=== PATIENT | male | born 1950 | race Caucasian/White ===

== ENCOUNTER → 2019-04-12 13:52 | Outpatient (CLI) | payer MEDICARE, SELFPAY ==
--- NOTE | ~2019-04-12 | CT_ITS ---
EXAMINATION: CT abdomen w con DATE: 04/12/2019 14:28 INDICATION: Left upper quadrant pain for 3 months TECHNIQUE: Computed tomography (CT) of the abdomen and pelvis was performed with 100 cc Omnipaque 350 intravenous contrast. The dose-length product was 695.68 mGy-cm. Automated exposure control and iter ative reconstruction technique were employed. COMPARISON: CT dated 07/20/2017 FINDINGS: Lung bases unremarkable. No significant pleural or pericardial effusion. Heart size is norm al. Fatty infiltration of the liver. Calcified granulomas in the spleen. The pancreas is unremarkable . There are nonobstructing bilateral renal stones. There is a subcentimeter hypodensity of the left k idney, most likely benign. There are small subcentimeter adrenal masses bilaterally, most likely more gn. Gallbladder is present. There is diffuse thickening of the stomach, suspicious for gastritis. No evidence for perforation. No obstruction. There is atherosclerosis of the aorta without aneurysm. Col onic diverticulosis without evidence for diverticulitis. No free air or free fluid. IMPRESSION: 1. Diffuse abnormal thickening of the gastric wall, suspicious for gastritis. Differential diagnosis would include lymphoma, although less favored. 2: Bilateral nonobstructing nephrolithiasis. 3: Hepatic steatosis. Reviewed, dictated and finalized at location A. ET MOLDER IMPRESSION: 1. Diffuse abnormal thickening of the gastric wall, suspicious for gastritis. D ifferential diagnosis would include lymphoma, although less favored. 2: Bilateral nonobstructing nephrolithiasis. 3: Hepatic steatosis.
[2019-04-12 14:21] LABS: Blood Urea Nitrogen 16 mg/dL (8-26); Estimated Glomerular Filt Rate > 60
== END ==
PROVIDERS: PCP Family Medicine; Visit Provider Physician Assistant
DX: R10.12 Left upper quadrant pain (principal); N20.0 Calculus of kidney; K76.0 Fatty (change of) liver, not elsewhere classified
CPT/HCPCS: 74160; Q9967

== ENCOUNTER 2019-05-16 00:22 | Day surgery (SDC) | payer MEDICARE, SELFPAY ==
[2019-05-11 13:00] VITALS: BMI 33.5
[2019-05-16 08:01] VITALS: BP 135/62; PULSE 66; RESP 18; TEMP 36.1; O2SAT 99; BMI 34.1
--- NOTE | 2019-05-16 08:07 | PM.HPGS ---
History of Present Illness History of Present Illness Consent: Risks, benefits, and alternatives have been discussed and questions answered. Patient agrees to proceed with procedure. Chief complaint: Dysphagia, Neoplasm Screening Narrative: Tolu Franklin is a 68 year old W male referred for EGD and colonoscopy. Chronic GERD and intermittent dysphagia. Hx of colonic polyps and last colonoscopy 10 yrs ago. No LGI tract symptoms PMFSH Past Medical History Medical History LUQ abdominal pain Surgical History Surgical History (Updated 05/16/19 @ 08:10 by Camron Sawyer MD) History of appendectomy S/P bilateral inguinal herniorrhaphy Family History Family History Mother Patient's mother is , Onset Age: 62 Family history of malignant neoplasm of ovary Hypertension Father Patient's father is in good health Social History Social History Smoking status: Heavy tobacco smoker Alcohol intake: current Meds Home Medications and Allergies Home Medications Medication Instructions Recorded Confirmed Type fluoxetine 40 mg capsule 40 mg PO QAM #90 cap 03/11/19 05/11/19 Rx glipizide 10 mg tablet 10 mg PO BID #180 tablet 04/04/19 05/11/19 Rx metformin 500 mg PO BID 05/11/19 05/11/19 History etodolac 05/16/19 History Allergies Allergy/AdvReac Type Severity Reaction Status Date / Time No Known Allergies Allergy Unknown Verified 05/16/19 08:00 Vital Signs Vital Signs - 24 hr 05/16/19 08:01 Temperature 36.1 C L Pulse Rate 66 Respiratory Rate 18 Blood Pressure 135/62 Pulse Oximetry 99 Exam Const: Orientation/consciousness: patient oriented x3 Resp: Auscultation: clear to auscultation bilaterally Cardio: Rate: regular rate Rhythm: regular rhythm Heart sounds: no murmurs GI: GI Palp: Yes Soft to palpation, No Tenderness to palpation present (GI), Yes No hepatosplenomegaly present and No Palpable mass present Auscultation: normal bowel sounds Neuro: General: patient oriented x3 and no focal motor deficits Extrem: General: no pedal edema Assessment and Plan Additional Plan EGD and colonscopy
[2019-05-16 08:21] LABS: Glucose Point of Care 169 (65-105)
[2019-05-16] MEDS: LACTATED RINGERS 1,000 ML 150 ML IV CONT (08:21)
--- NOTE | 2019-05-16 08:55 | WPDANESEPPF ---
Anes - Initial Pre Proc Eval Procedure: Operation Date: 05/16/19 09:00 Proposed Procedures p Esophagogastroduodenoscopy&Screen Colon - Camron Sawyer MD Date/Time: 05/16/19 08:55 Surgeon: Camron Sawyer MD Pre Op Diagnosis: Dysphagia, Neoplasm Screening Patient Data Age: 68 Gender: M Height: 5 ft 8 in Weight: 101.9 kg Last Vital Signs Temp 96.9 F L 05/16/19 08:01 Pulse 66 05/16/19 08:01 Resp 18 05/16/19 08:01 BP 135/62 05/16/19 08:01 Pulse Ox 99 05/16/19 08:01 Allergies Allergy/AdvReac Type Severity Reaction Status Date / Time No Known Allergies Allergy Unknown Verified 05/16/19 08:00 Home Medications Medication Instructions Recorded Confirmed Type fluoxetine 40 mg capsule 40 mg PO QAM #90 cap 03/11/19 05/11/19 Rx glipizide 10 mg tablet 10 mg PO BID #180 tablet 04/04/19 05/11/19 Rx metformin 500 mg PO BID 05/11/19 05/11/19 History amlodipine-olmesartan 1 tablet PO DAILY 05/16/19 05/16/19 History etodolac 05/16/19 History etodolac 400 mg PO BID 05/16/19 05/16/19 History linagliptin [Tradjenta] 5 mg PO QAM 05/16/19 05/16/19 History nebivolol [Bystolic] 20 mg PO DAILY 05/16/19 05/16/19 History pantoprazole 40 mg PO QAM 05/16/19 05/16/19 History rosuvastatin 10 mg PO DAILY 05/16/19 05/16/19 History Laboratory Tests 05/16/19 08:15 POC Capillary Glucose 169 mg/dl H mg/dl (65-105) Patient hx anesthesia problems: none Family hx anesthesia problems: none PMFSH Past Medical History Medical History (Updated 05/16/19 @ 08:55 by Nnamdi Osuna MD) Chronic GERD Essential hypertension LUQ abdominal pain YASMANY (obstructive sleep apnea) Pure hypercholesterolemia Type 2 diabetes mellitus without complication, without long-term current use of insulin Surgical History Surgical History (Updated 05/16/19 @ 08:10 by Camron Sawyer MD) History of appendectomy S/P bilateral inguinal herniorrhaphy Family History Family History Mother Patient's mother is , Onset Age: 62 Family history of malignant neoplasm of ovary Hypertension Father Patient's father is in good health Social History Social History Smoking status: Heavy tobacco smoker Alcohol intake: current Anes - Eval Final PreProcedure Day of Procedure 05/16/19 08:55 Patient weight: obese Heart: regular rate and rhythm Lungs: clear to auscultation Airway: Mallampati scale class III Neurological: alert and oriented Last oral intake: >/= 8 hours ASA classification: III Emergent: no Anesthetic plan: proceed Anesthesia type and monitoring: general GIVS and standard monitoring Informed Consent: The patient's anesthetic plan and its attendant risks and benefits were discussed with the patient/family/POA. Questions were solicited and answers provided to the satisfaction of the patient/family/POA.
[2019-05-16] MEDS: BENZOCAINE (*SP) 60 ML SPRAY CAN (HURRICAINE) 1 SPRAY MUCOUS MEM (09:08)
[2019-05-16 09:42] VITALS: BP 81/47; PULSE 59; RESP 14; O2SAT 98
[2019-05-16 09:52] VITALS: BP 97/51; PULSE 58; RESP 14; O2SAT 98
[2019-05-16 10:02] VITALS: BP 95/56; PULSE 60; RESP 14; O2SAT 98
[2019-05-16 10:12] VITALS: BP 110/59; PULSE 57; RESP 14; O2SAT 98
== END 2019-05-16 10:41 | disposition home or self-care (01) ==
PROVIDERS: PCP Family Medicine; Visit Provider Internal Medicine Gastroenterology
PROC: 0DJ08ZZ Inspection of Upper Intestinal Tract, Via Natural or Artificial Opening Endoscopic (ICD-10-PCS; CPT 43235; principal; 2019-05-16 09:00)
DX: Z12.11 Encounter for screening for malignant neoplasm of colon (principal); K64.8 Other hemorrhoids; K57.30 Diverticulosis of large intestine without perforation or abscess without bleeding; K31.89 Other diseases of stomach and duodenum; K29.50 Unspecified chronic gastritis without bleeding; R13.10 Dysphagia, unspecified; K21.9 Gastro-esophageal reflux disease without esophagitis; I10 Essential (primary) hypertension; E78.00 Pure hypercholesterolemia, unspecified; E11.9 Type 2 diabetes mellitus without complications; G47.33 Obstructive sleep apnea (adult) (pediatric); Z79.84 Long term (current) use of oral hypoglycemic drugs; E66.9 Obesity, unspecified; Z68.34 Body mass index [BMI] 34.0-34.9, adult
CPT/HCPCS: 43239; G0121; 88305; J2704; J7120

== ENCOUNTER 2019-07-28 10:25 | Outpatient (CLI) | payer MEDICARE, SELFPAY ==
--- NOTE | ~2019-07-28 | XR_ITS ---
EXAMINATION: XR shoulder LT min 2V DATE: 07/28/2019 10:39 INDICATION: Left shoulder pain. TECHNIQUE: 4 views of left shoulder were obtained. COMPARISON: None. FINDINGS: Bone alignment is normal. No fracture. There is mild osteoarthritis of glenohumeral joint a nd moderate osteoarthritis of acromioclavicular joint. IMPRESSION: 1. Polyarticular osteoarthritis. Reviewed, dictated and finalized at location A.
== END 2019-07-28 10:26 | disposition home or self-care (01) ==
PROVIDERS: PCP Family Medicine; Visit Provider Physician Assistant
DX: M19.012 Primary osteoarthritis, left shoulder (principal)
CPT/HCPCS: 73030

== ENCOUNTER 2019-10-16 15:04 | Inpatient (IN) | payer MEDICARE, SELFPAY ==
--- NOTE | ~2019-10-16 | CT_ITS ---
EXAMINATION: CT chest wo con DATE: 10/16/2019 16:44 INDICATION: Bilateral airspace disease with possible mass seen on recent chest x-ray TECHNIQUE: Computed tomography (CT) of the chest was performed without intravenous contrast. The dose -length product was 716.05 mGy-cm. Automated exposure control and iterative reconstruction technique were employed. COMPARISON: Chest x-ray dated 10/16/2019 FINDINGS: There is patchy bilateral airspace consolidation, consistent with pneumonia. Small pleural effusions. Consolidation at the left upper lobe accounts for masslike density seen on chest x-ray. Ri ght paratracheal lymphadenopathy measures 12 mm, image 49, likely reactive. There is left gynecomasti a. There is bilateral adrenal thickening, possibly adrenal hyperplasia. Calcified granulomas in the s pleen. IMPRESSION: 1. Extensive bilateral patchy airspace consolidation, compatible with pneumonia. No discrete mass saida ntified. 2: Small pleural effusions. Reviewed, dictated and finalized at location A. IMPRESSION: 1. Extensive bilateral patchy airspace consolidation, compatible with pneumonia . No discrete mass identified. 2: Small pleural effusions.
--- NOTE | ~2019-10-16 | XR_ITS ---
XR chest 1V portable 10/16/2019 15:42 Indication: Shortness of breath Procedure: AP portable chest Comparison: 11/17/2017 Findings: Cardiomegaly with diffuse bilateral airspace disease, compatible with edema versus pneumoni a. There is a masslike density in the left apex. Cannot exclude parenchymal mass. There is a left sherin ulder arthroplasty. No significant pleural effusion or pneumothorax. Impression: 1: Bilateral airspace disease which may represent edema or pneumonia. 2: Masslike density left apex. Recommend correlation with CT chest to exclude parenchymal mass. Reviewed, dictated and finalized at location A. Impression: 1: Bilateral airspace disease which may represent edema or pneumonia. 2: Masslike density left apex. Recommend correlation with CT chest to exclude parenchymal mass.
[2019-10-16 15:09] VITALS: BP 147/65; PULSE 95; RESP 22; TEMP 35.9; O2SAT 91
[2019-10-16 15:21] VITALS: BP 152/73; PULSE 90; PULSE 91; RESP 24; O2SAT 79
--- NOTE | 2019-10-16 15:22 | ED.SOB ---
HPI - SOB/Dyspnea General Chief Complaint: Shortness of Breath/Dyspnea Stated Complaint: sob Time Seen by Provider: 10/16/19 15:22 History of Present Illness HPI Narrative: He had surgery to the left shoulder 4 days ago. He had been doing well until today. Today he was feeling very SOB. His bought a pulse oximeter, which read in the 70. He does report some chest pressure as well. No fever, chills, cough. No h/o CHF, COPD. Related Data Home Medications Medication Instructions Recorded Confirmed rosuvastatin 10 mg PO DAILY 05/16/19 10/07/19 acetaminophen 10/16/19 aspirin PO 10/16/19 docusate sodium [DOK] PO 10/16/19 oxycodone-acetaminophen 1 tablet PO Q4H PRN 10/16/19 Allergies Allergy/AdvReac Type Severity Reaction Status Date / Time No Known Allergies Allergy Unknown Verified 10/16/19 15:25 Review of Systems Review of Systems: All systems reviewed & are unremarkable except as noted in HPI and below Constitutional: Constitutional: Denies chills and Denies fever(s) ENT: Denies sore throat Cardiovascular: Cardiovascular: Reports chest pain Respiratory: Respiratory: Reports dyspnea Gastrointestinal: Gastrointestinal: Denies abdominal pain, Denies nausea and Denies vomiting Musculoskeletal: Musculoskeletal: Denies back pain Neurologic: Denies numbness and Denies weakness [facility] Past Medical History Medical History Chronic GERD Diverticulosis Erectile dysfunction Essential hypertension HLD (hyperlipidemia) Internal hemorrhoid Left shoulder pain LUQ abdominal pain YASMANY (obstructive sleep apnea) Pure hypercholesterolemia Status post fall Type 2 diabetes mellitus with hyperglycemia Type 2 diabetes mellitus without complication, without long-term current use of insulin Surgical History Surgical History History of appendectomy S/P bilateral inguinal herniorrhaphy Family History Family History Mother Patient's mother is , Onset Age: 62 Family history of malignant neoplasm of ovary Hypertension Father Patient's father is in good health Social History Social History Smoking packs per day: 1 Smoking cigarettes per day: 20.0 Years smoked: 45 Smoking pack-years: 45.00 Smoking status: Heavy tobacco smoker Tobacco type: cigarettes Second hand tobacco smoke exposure: No Alcohol intake: current Drinks per week: 6 Substance use: never Substance use type: does not use Gender identity (if verbalized by the patient): Male Exam Const: General: no acute distress and alert Nutritional Appearance: obese Orientation/consciousness: patient oriented x3 HENMT: Head: normal to inspection Neck: Neck: normal visual inspection Chest: Other: Bruising to the left chest Resp: Effort & Inspection: normal respiratory effort and labored Auscultation: clear to auscultation bilaterally, crackles and diminished lung sounds Cardio: Jugular venous distension: no JVD Rate: regular rate Rhythm: regular rhythm Heart sounds: no murmurs GI: Inspection: non-distended GI Palp: Yes Soft to palpation and No Tenderness to palpation present (GI) Skin: General skin exam: normal color Neuro: General: patient oriented x3 and moves all extremities Speech: normal speech Extrem: General: edema (trace) Psych: Appearance: well kempt Affect: normal affect Course Vital Signs Vital signs: Vital Signs Temperature 35.9 C L 10/16/19 15:09 Pulse Rate 95 10/16/19 15:09 Respiratory Rate 22 H 10/16/19 15:09 Blood Pressure 147/65 H 10/16/19 15:09 Pulse Oximetry 91 10/16/19 15:09 Temperature 35.9 C L 10/16/19 15:09 Pulse Rate 84 10/16/19 15:56 Respiratory Rate 24 H 10/16/19 15:56 Blood Pressure 143/77 H 10/16/19 15:56 Pulse Oximetry
--- NOTE | 2019-10-16 15:28 | PC.NURSE ---
BERENICE Frias at bedside for assessment.
[2019-10-16 15:51] LABS: Basophils Percent Auto 0.3 % (0.2-1.2); Eosinophils Percent Auto 0.3 % (0-4.4); Hematocrit 26.5 % (42.0-52.0); Hemoglobin 8.4 g/dL (14.0-18.0); Immature Granulocyte Absolute 0.05 K/mm3 (0.00-0.031); Immature Granulocyte Percent A 0.7 % (0-0.5); Lymphocytes Percent Auto 10.5 % (18.3-44.2); Mean Corpuscular HGB Conc 31.7 g/dl (32-36); Mean Corpuscular Hemoglobin 28.4 pg (26-34); Mean Corpuscular Volume 89.5 fl (80-100); Mean Platelet Volume 9.9 fl (7.4-10.4); Monocytes Absolute Auto 0.7 K/mm3 (0.1-0.6); Monocytes Percent Auto 9.7 % (2.6-8.5); Neutrophils Percent Auto 78.5 % (45.5-73.1); Platelet Count Result 174 k/mm3 (150-375); Red Blood Count 2.96 M/mm3 (4.6-6.20); Red Cell Distribution Width 15.4 % (11.5-14.5); White Blood Count 7.6 K/mm3 (4.5-10.0)
[2019-10-16 15:56] VITALS: BP 143/77; PULSE 84; RESP 24; O2SAT 92
[2019-10-16 16:00] LABS: INR 1.1; Prothrombin Time 14.2 Seconds (11.1-14.7)
[2019-10-16 16:01] LABS: Partial Thromboplastin Time 34.7 SECONDS (22.3-36.8)
[2019-10-16 16:03] LABS: Anion Gap 10.9 mmol/L (7-16); Blood Urea Nitrogen 11 mg/dL (9-20); Calcium 8.3 mg/dL (8.4-10.2); Carbon Dioxide 26 mmol/L (22-30); Chloride 104 mmol/L (98-107); Estimated Glomerular Filt Rate > 60; Glucose 129 mg/dL (75-110); Potassium 3.9 mmol/L (3.4-5.0); Sodium 137 mmol/L (137-145)
[2019-10-16 16:14] LABS: Troponin I < 0.012 ng/mL (0.000-0.034)
--- NOTE | 2019-10-16 16:18 | ECG_ITS ---
Measurements Intervals [place] Rate: 86 P: 33 CO: 164 QRS: 31 QRSD: 86 T: 28 QT: 363 QTc: 435 Interpretive Statements SINUS RHYTHM BASELINE WANDER- V1 NORMAL ECG Electronically Signed On 10-16-2019 16:21:03 CDT by Dave Franco D.O.
[2019-10-16] MEDS: FUROSEMIDE INJ 40 MG/4 ML VIAL IV PUSH (16:20)
[2019-10-16 16:33] LABS: NT Pro B Type Natriuretic Pept 948 PG/ML (5-100)
[2019-10-16 19:25] VITALS: BP 130/74; PULSE 81; RESP 16; O2SAT 98
[2019-10-16 19:45] VITALS: BP 140/69; PULSE 83; RESP 22; TEMP 36.8; O2SAT 93; BMI 34.7
--- NOTE | 2019-10-16 20:10 | ADMGEN ---
This patient, Tolu Franklin, was admitted to [facility] Surg Room 328-01. Patient/family oriented to hospital policies and general routines including ID bracelet, bed and alarms, visiting hours, pain management, procedures, bathroom and other care routines, personal items, smoking policy, room service/diet, and visiting hours. Valuables list has been completed. Information on how to activate the Rapid Response Team has been discussed. Patient/Family are encouraged to report perceived risks to care and to ask questions if they do not understand what they are told or what they should do.
--- NOTE | 2019-10-16 23:21 | PM.IMHP ---
H&P: HPI History of Present Illness Date/Time: 10/16/19 23:21 Chief complaint: Acute respiratory failure w hypoxia/pneumonia/pulm Narrative: Tolu Franklin is a 69 year old male Who recently had left shoulder surgery at [facility]. The patient stated that he did have an incentive spirometer that he has been using it. The patient also told me that he was checked for covid 19 prior to this surgery. The patient has been feeling short of breath. He tells me that he still continues to smoke cigarettes. His but a pulse ox and it was reading in the 70 percentile. He does not have any chest pain no fever no chills no cough . The patient has no history of congestive heart failure COPD. He does not wear oxygen at home. The patient was brought and was going to be treated for community-acquired pneumonia checked for covid 19. Patient did not have any leukocytosis. His H&H is 8.426.5 which he typically has anemia but his last hemoglobin noted here was from 2 years ago. And that was between 10 and 11. The patient also has sleep apnea and stated that he could not sleep without his machine. He was told that he could not bring his machine in here. I offered to give him a machine that he could use here. The patient stated he is very comfortable in the bed we tried to place him in the recliner and he tried that for about 30 minutes and was very uncomfortable. The patient stated that he is very uncomfortable and does not want to stay here. I a explained that we could try to get him a specialty bed tomorrow. But the patient again stated he made up his mind and did not want to stay here. The patient stated he has any problems that he would like to go back to [facility]. The patient tells me that he did not want to stay here to begin with and that he wanted to go back to [facility]. The patient had a Moore catheter that was placed ear and also he had oxygen placed at 2 L per nasal cannula. The patient took off his oxygen and his Moore catheter was removed. I advised the patient that he was diagnosed with pneumonia and that he is being checked for COVID and that we could not discharge him at this point that he would be signing out AMA. Patient is telling me that he would like to sign out AMA. He stated that he called his and that he is going to leave. Since the patient recently had cyst surgery he did have a chest CT a which was read as extensive bilateral patchy airspace consolidation, comparable with pneumonia no discrete mass. Small pleural effusions. The patient was given IV Lasix for possible pulmonary edema and he was started on Rocephin And azithromycin. The patient is fully aware that he will not get any further treatment if he signs out AMA. I have spent at least 45 minutes with the patient. I was not able to convince him to stay. left shoulder incision well approximated without any drainage. Date of service 10/16/2019 Review of Systems Review of Systems: All systems reviewed & are unremarkable except as noted in HPI and below Constitutional: Constitutional: Reports as per HPI and Reports no additional constitutional complaints Eyes: Eyes: Reports as per HPI and Reports no additional eye complaints ENT: Reports system reviewed and no additional complaints, except as documented and Reports Normal hearing present Cardiovascular: Cardiovascular: Reports no additional cardiovascular complaints Respiratory: Respiratory: Reports no additional respiratory complaints and Reports no additional respiratory complaints Gastrointestinal: Gastrointestinal: Reports as per HPI and Reports no additional gastrointestinal complaints Musculoskeletal: Musculoskeletal: Reports no additional musculoskeletal complaints Integumentary/Breasts: Skin/Breast: Reports system reviewed and no additional complaints, except as docu and Reports as per HPI Neurologic: Reports system reviewed and no additional complaints, except as
--- NOTE | 2019-10-16 23:38 | PC.NURSE ---
Patient stated he was going to leave and go home. Rufina Vasques informed and she went into room to talk to patient. Patient insisted he was going home AMA papers signed. Oscar, EMILEE, and Telemetry DC'd. arrived to take patient home. Patient taken down to lobby by charge nurse Payal with all belongings.
--- NOTE | 2019-10-16 23:48 | PC.NURSE ---
Patient notified of risks of leaving AMA. Rufina Vasques notified. Patient signed AMA form. Patient left with all belongings.
[2019-10-17 12:00] LABS: SARS-CoV-2 RNA PCR Negative
== END 2019-10-16 23:56 | disposition left against medical advice (07) | DRG 189 ==
LOC: ANHED 17:36 → ANH3MEDSUR 17:38
PROVIDERS: Admitting Provider Internal Medicine; Emergency Provider Emergency Medicine; PCP Family Medicine; Visit Provider Internal Medicine
DX: J96.01 Acute respiratory failure with hypoxia (principal); J18.9 Pneumonia, unspecified organism; Z20.828 Contact with and (suspected) exposure to other viral communicable diseases; F17.210 Nicotine dependence, cigarettes, uncomplicated; E78.5 Hyperlipidemia, unspecified; E11.9 Type 2 diabetes mellitus without complications; F32.9 Major depressive disorder, single episode, unspecified; I10 Essential (primary) hypertension; G47.33 Obstructive sleep apnea (adult) (pediatric); K21.9 Gastro-esophageal reflux disease without esophagitis; Z96.612 Presence of left artificial shoulder joint; Z98.890 Other specified postprocedural states; Z79.82 Long term (current) use of aspirin; Z79.84 Long term (current) use of oral hypoglycemic drugs
CPT/HCPCS: 36415; 71045; 71250; 80048; 83880; 84484; 85025; 85610; 85730; 87635; 93005; 96374; 99291; C9803; J0456; J0696; J1940; U0003

== ENCOUNTER 2019-10-17 01:48 | Inpatient (IN) | payer MEDICARE, SELFPAY ==
[2019-10-17] VITALS (20 sets, daily range): BP systolic 112–187; BP diastolic 57–101; PULSE 73–104; RESP 16–29; TEMP 36.4–37.1; O2SAT 84–97; BMI 34.4
--- NOTE | ~2019-10-17 | US_ITS ---
EXAMINATION: US venous doppler [facility] DATE: 10/20/2019 07:04 INDICATION: Hypoxia TECHNIQUE: Ervin scale images without and with compression and Doppler images of the bilateral lower e xtremity veins were obtained. COMPARISON: None FINDINGS: The right common femoral vein, profunda femoral vein, femoral vein, popliteal vein, peroneal trunk, p osterior tibial veins, and greater saphenous vein are patent. The left common femoral vein, profunda femoral vein, femoral vein, popliteal vein, peroneal trunk, po sterior tibial veins, and greater saphenous vein are patent. IMPRESSION: 1. Patent bilateral lower extremity veins. No evidence of deep venous thrombosis. Reviewed, dictated and finalized at location A. IMPRESSION: 1. Patent bilateral lower extremity veins. No evidence of deep venous thrombosi s.
--- NOTE | ~2019-10-17 | XR_ITS ---
EXAMINATION: XR chest 2V DATE: 10/19/2019 08:25 INDICATION: Shortness of breath, pneumonia TECHNIQUE: Frontal and lateral views of the chest are obtained COMPARISON: 10/16/2019 FINDINGS: Diffuse airspace opacities persist with slight worsening in the left midlung zone. Small pl eural effusions are stable. No pneumothorax is identified. The cardiomediastinal silhouette is normal . There are changes of left total shoulder arthroplasty IMPRESSION: 1. Diffuse lung disease with interval worsening in the left midlung zone, consistent with pneumonia. Reviewed, dictated and finalized at location A. IMPRESSION: 1. Diffuse lung disease with interval worsening in the left midlung zone, consi stent with pneumonia.
--- NOTE | ~2019-10-17 | US_ITS ---
EXAMINATION: US renal BI DATE: 10/20/2019 07:05 INDICATION: Hematuria TECHNIQUE: Multiple grayscale and Doppler ultrasound images of the kidneys were obtained. COMPARISON: CT, 07/20/2017 FINDINGS: The right kidney measures 12 x 5.6 x 6.3 cm. The left kidney measures 13.5 x 5.2 x 6.9 cm. The kidneys demonstrate normal parenchymal echogenicity. There is no hydronephrosis. The bladder demo nstrates circumferential wall thickening and posterior diverticula. IMPRESSION: 1. Normal kidneys without hydronephrosis. 2. Circumferential bladder wall thickening which may be due to cystitis or chronic outlet obstruction . Reviewed, dictated and finalized at location A. IMPRESSION: 1. Normal kidneys without hydronephrosis. 2. Circumferential bladder wall thickening which may be due to cystitis or account services manager noman outlet obstruction.
--- NOTE | 2019-10-17 01:57 | ECG_ITS ---
Measurements Intervals [place] Rate: 96 P: 42 SC: 155 QRS: 32 QRSD: 86 T: 23 QT: 338 QTc: 427 Interpretive Statements SINUS RHYTHM BORDERLINE ST ABNORMALITY- ANTERIOR LEADS BASELINE ARTIFACT- II, III, AVR, AVF BORDERLINE ECG Electronically Signed On 10-17-2019 17:12:29 CDT by Dave Franco D.O.
--- NOTE | 2019-10-17 02:04 | ED.SOB ---
HPI - SOB/Dyspnea General Chief Complaint: Shortness of Breath/Dyspnea Stated Complaint: SOB Time Seen by Provider: 10/17/19 01:54 Source: RN notes reviewed and old records reviewed History of Present Illness HPI Narrative: Patient presents emergency department from home for shortness of breath. Patient was seen and evaluated in the [place] ED earlier today and admitted to the hospital with bilateral pneumonia with concerns of COVID. He had been treated with Rocephin and Zithromax at that time following a CTA of his chest. Patient got upstairs and had left AGAINST MEDICAL ADVICE. He had returned home and was hypoxic and felt worse and came back for further evaluation. He currently denies any chest pain. Reports no shortness of breath. Patient did just have left shoulder surgery on 10/13/2019 at [facility]. Denies any other symptoms at this time Related Data Home Medications Medication Instructions Recorded Confirmed rosuvastatin 10 mg PO DAILY 05/16/19 10/16/19 acetaminophen 650 mg PO Q6H PRN 10/16/19 10/16/19 aspirin 325 mg PO DAILY 10/16/19 10/16/19 docusate sodium [DOK] 100 mg PO DAILY 10/16/19 10/16/19 oxycodone-acetaminophen 1 tablet PO Q4H PRN 10/16/19 10/16/19 Allergies Allergy/AdvReac Type Severity Reaction Status Date / Time No Known Allergies Allergy Unknown Verified 10/16/19 15:25 Review of Systems Review of Systems: Narrative: Gen.: Denies fevers or chills ENT: Denies congestion Respiratory: See HPI CV: Denies chest pain or palpitations GI: Denies abdominal pain nausea, emesis or diarrhea Musculoskeletal: Denies back pain or muscle pain Neuro: Denies numbness, tingling, weakness or focal weakness Skin: Denies rash Except as documented, all other systems reviewed and negative [facility] Past Medical History Medical History Aftercare following left shoulder joint replacement surgery Chronic GERD Diverticulosis Erectile dysfunction Essential hypertension HLD (hyperlipidemia) Internal hemorrhoid Left shoulder pain LUQ abdominal pain YASMANY (obstructive sleep apnea) Pure hypercholesterolemia Status post fall Type 2 diabetes mellitus with hyperglycemia Type 2 diabetes mellitus without complication, without long-term current use of insulin Surgical History Surgical History (Updated 10/16/19 @ 23:30 by Rufina Vasques NP) H/O shoulder surgery this past week at [facility]. History of appendectomy S/P bilateral inguinal herniorrhaphy Social History Social History Social History: The patient tells me that he lives with his . And that she is a durable power criminal defense attorney for healthcare. The patient stated that he does continue to smoke but he plans on quitting today. The patient is a full code. Smoking packs per day: 1 Smoking cigarettes per day: 20.0 Years smoked: 50 Smoking pack-years: 50.00 Smoking status: Current every day smoker Tobacco type: cigarettes Second hand tobacco smoke exposure: No Alcohol intake: current Drinks per week: 7 Substance use: never Substance use type: does not use Gender identity (if verbalized by the patient): Male Spiritual care concerns: No Exam Narrative: Exam Narrative: APPEARANCE: No acute distress, nontoxic, resting in bed EYES: EOMI HEENT: Normocephalic, atraumatic, OMM RESPIRATORY: No respiratory distress coarse breath sounds bilateral lung lopez CARDIOVASCULAR: Regular rate and rhythm without murmurs rubs or gallops. ABDOMINAL: Soft, nontender, nondistended, no rebound or guarding MUSCULOSKELETAl: Moves all extremities. No clubbing, cyanosis or edema. NEURO: Awake and alert. Following commands, speech normal, no focal deficits SKIN:: Warm, dry. No rashes lesions or abrasions PSYCHIATRIC: Normal affect/mood, Course Course Emergency Course: Reviewed old records. The patient received antibiotics on pr
[2019-10-17 02:19] LABS: Basophils Percent Auto 0.4 % (0.2-1.2); Eosinophils Percent Auto 0.1 % (0-4.4); Hematocrit 28.6 % (42.0-52.0); Hemoglobin 9.2 g/dL (14.0-18.0); Immature Granulocyte Absolute 0.09 K/mm3 (0.00-0.031); Immature Granulocyte Percent A 1.1 % (0-0.5); Lymphocytes Absolute Auto 0.74 K/mm3 (0.9-3.2); Lymphocytes Percent Auto 9.1 % (18.3-44.2); Mean Corpuscular HGB Conc 32.2 g/dl (32-36); Mean Corpuscular Hemoglobin 28.2 pg (26-34); Mean Corpuscular Volume 87.7 fl (80-100); Mean Platelet Volume 10.7 fl (7.4-10.4); Monocytes Absolute Auto 0.7 K/mm3 (0.1-0.6); Neutrophils Absolute Auto 6.5 K/mm3 (1.3-6.7); Neutrophils Percent Auto 80.3 % (45.5-73.1); Platelet Count Result 214 k/mm3 (150-375); Red Blood Count 3.26 M/mm3 (4.6-6.20); Red Cell Distribution Width 15.2 % (11.5-14.5); White Blood Count 8.1 K/mm3 (4.5-10.0)
[2019-10-17 02:32] LABS: Alanine Aminotransferase 21 U/L (4-50); Albumin Level 4.1 g/dL (3.5-5.1); Alkaline Phosphatase 91 U/L (38-126); Anion Gap 13.5 mmol/L (7-16); Aspartate Amino Transferase 30 U/L (17-59); Bilirubin,Total 1.7 mg/dL (0.2-1.3); Blood Urea Nitrogen 10 mg/dL (9-20); Carbon Dioxide 24 mmol/L (22-30); Chloride 102 mmol/L (98-107); Estimated Glomerular Filt Rate > 60; Glucose 155 mg/dL (75-110); Potassium 3.5 mmol/L (3.4-5.0); Sodium 136 mmol/L (137-145)
--- NOTE | 2019-10-17 04:40 | ADMGEN ---
This patient, Tolu Franklin, was admitted to [facility] Surg Room 327-01. Patient/family oriented to hospital policies and general routines including ID bracelet, bed and alarms, visiting hours, pain management, procedures, bathroom and other care routines, personal items, smoking policy, room service/diet, and visiting hours. Valuables list has been completed. Information on how to activate the Rapid Response Team has been discussed. Patient/Family are encouraged to report perceived risks to care and to ask questions if they do not understand what they are told or what they should do.
[2019-10-17] MEDS: POTASSIUM CHLORIDE 20 MEQ TABLET 40 MEQ PO (09:45)
[2019-10-17] MEDS: ENOXAPARIN 40 MG/0.4 ML SYRINGE SUB-Q (09:45)
[2019-10-17] MEDS: DOCUSATE SODIUM 100 MG CAPSULE PO (09:46)
[2019-10-17] MEDS: NEBIVOLOL HCL 5 MG TABLET 20 MG PO (09:46)
[2019-10-17] MEDS: FLUoxetine HCL 20 MG CAPSULE 40 MG PO (09:48)
[2019-10-17] MEDS: OLMESARTAN MEDOXOMIL 20 MG TABLET 40 MG PO (09:48)
[2019-10-17] MEDS: PANTOPRAZOLE 40 MG TABLET PO (09:49)
[2019-10-17] MEDS: amLODIPine BESYLATE 5 MG TABLET PO (09:49)
[2019-10-17] MEDS: ASPIRIN 325 MG ENTERIC TABLET PO (09:49)
[2019-10-17] MEDS: ROSUVASTATIN 10 MG TABLET PO (09:49)
--- NOTE | 2019-10-17 12:47 | PC.NURSE ---
Notified Dr. Padilla that patient COVID is negative
[2019-10-17] MEDS: ACETAMINOPHEN 325 MG TABLET 650 MG PO ×2 (13:45→22:03)
--- NOTE | 2019-10-17 17:48 | PM.IMHP ---
H&P: HPI History of Present Illness Date/Time: 10/17/19 17:48 Chief complaint: Acute respiratory failure with hypoxia, Narrative: date of visit 10/16 1130 Tolu Franklin is a 69 year old male with hypertension type 2 diabetes status post left shoulder surgery for osteoarthritis and rotator cuff tear 10/13 who presented to the emergency room yesterday with 8 to with increasing shortness of breath. Found to have diffuse infiltrates and hypoxic with negative CTA for pulmonary emboli. Initially was admitted and left the hospital when he was feeling better and returned main became more hypoxic and short of breath at home. Presently on 4 L nasal cannula is comfortable has had minimal cough no fever chills or chest pain COVID tested prior to his elective shoulder surgery and negative Review of Systems Review of Systems: Narrative: constitutional states she has had no fevers chills stated and has lost about 10 lb over the last 6 months with purposeful dieting Eye no double vision scotoma mouth no pharyngitis laryngitis pulmonary as per present illness CV no history of murmurs no chest pain or palpitation GI no melena hematochezia diarrhea as had some burning with urination and had Moore yesterday muscle skeletal left shoulder pain no other joint pains integument no skin breakdown down or rashes Heme history of anemia and negative colonoscope some 2 years ago [facility] Past Medical History Medical History Aftercare following left shoulder joint replacement surgery Chronic GERD Diverticulosis Erectile dysfunction Essential hypertension HLD (hyperlipidemia) Internal hemorrhoid Left shoulder pain LUQ abdominal pain YASMANY (obstructive sleep apnea) Pure hypercholesterolemia Status post fall Type 2 diabetes mellitus with hyperglycemia Type 2 diabetes mellitus without complication, without long-term current use of insulin Surgical History Surgical History (Updated 10/16/19 @ 23:30 by Rufina Vasques NP) H/O shoulder surgery this past week at [facility]. History of appendectomy S/P bilateral inguinal herniorrhaphy Social History Social History Social History: The patient tells me that he lives with his . 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 The patient stated that he does continue to smoke but he plans on quitting today. The patient is a full code. Smoking packs per day: 1 Smoking cigarettes per day: 20.0 Years smoked: 40 Smoking pack-years: 40.00 Smoking status: Current every day smoker Tobacco type: cigarettes Second hand tobacco smoke exposure: No Alcohol intake: current Drinks per week: 7 Substance use: never Substance use type: does not use Gender identity (if verbalized by the patient): Male Sexual Orientation (if Verbalized by the Patient): Straight or Heterosexual Spiritual care concerns: No Comments alcohol consumption 6-8 beers 1-2 times per week but not on a daily basis Meds Home Medications and Allergies Home Medications Medication Instructions Recorded Confirmed Type fluoxetine 40 mg capsule 40 mg PO QAM #90 cap 03/11/19 10/17/19 Rx rosuvastatin 10 mg PO DAILY 05/16/19 10/17/19 History etodolac 400 mg tablet 400 mg PO BID #180 tablet 05/18/19 10/17/19 Rx linagliptin 5 mg tablet 5 mg PO QAM #90 tablet 07/12/19 10/17/19 Rx pantoprazole 40 mg tablet,delayed 40 mg PO QAM #90 tablet 07/12/19 10/17/19 Rx release sildenafil 100 mg tablet 100 mg PO DAILY PRN #6 tablet 08/10/19 10/17/19 Rx metformin 500 mg tablet,extended 2,000 mg PO DAILY #360 tablet 08/12/19 10/17/19 Rx release 24hr nebivolol 20 mg tablet 20 mg PO DAILY #90 tablet 09/19/19 10/17/19 Rx amlodipine 5 mg-olmesartan 40 mg 1 tablet PO DAILY #30 tablet 10/07/19 10/17/19 Rx tablet glipizide 5 mg tablet 5 mg PO BID #60 tablet 10/07/19 10/17/19 Rx ferrous s
[2019-10-17 18:26] LABS: Glucose Point of Care 164 (65-105)
[2019-10-17 18:37] LABS: Add Urine Microscopic? YES; Appearance Urine Clear (Clear); Bilirubin Urine 1+ (Negative); Blood Urine 1+ (Negative); Color Urine Yellow (Yellow); Glucose Urine UA 2+ mg/dL (Negative); Ketones Urine 1+ mg/dL (Negative); Leukocyte Esterase Ur Negative LEU/UL (NEGATIVE); Mucus Urine Few /lpf; Nitrate Urine Negative (Negative); Protein Urine 3+ mg/dL (Negative); RBC Urine 51-75 /hpf (0-2); Specific Grav Ur 1.024 (1.001-1.035); Squamous Epithelial Cell Urine Rare /hpf (Few); WBC Urine 0-3 /hpf (0-3)
[2019-10-17] MEDS: IPRATROPIUM BR 0.02% INH SOLN 0.5 MG/2.5 ML VIAL INHALATION (20:46)
[2019-10-17] MEDS: ALBUTEROL SULFATE NEB 2.5 MG/0.5 ML INH 5 MG INHALATION (20:47)
[2019-10-18] VITALS (18 sets, daily range): BP systolic 135–157; BP diastolic 56–80; PULSE 66–88; RESP 18–20; TEMP 36.5–36.9; O2SAT 89–96
--- NOTE | 2019-10-18 | ECHO_ITS ---
Patient Info Name: Tolu Franklin Age: 69 years : 1950 Gender: Male Ht: 68 in Wt: 226 lbs BSA: 2.26 m2 HR: 75 bpm BP: 146 / 56 mmHg Heart Rhythm: Sinus Rhythm Technical Quality: Fair Exam Date: 10/18/2019 10:16 AM Exam Location: [facility] Patient Status: Inpatient Admit Date: 10/18/2019 Staff Ordering Physician: Matthew Padilla MD General Office Associate: Ian Ho RDCS Attending Provider: Guera Mckeon PA-C Referring Physician: Valerie ODONNELL; Exam Type: CA echo doppler color flow Study Info Indications J96.01 - Acute respiratory failure with hypoxia Complete two-dimensional, color flow and Doppler transthoracic echocardiogram is performed. Strain analysis performed. History/Risk Factors Hypoxia w/ elevated BNP; CHF, HTN, DM2, CAP. Summary 1. Left ventricular chamber dimension is normal. 2. Left ventricular systolic function is normal, estimated at 60-65%. 3. There is mildly increased left ventricular wall thickness. 4. The left ventricular diastolic function is abnormal. 5. E/e' 20 is elevated. 6. Global longitudinal strain is abnormal at -15.3%. 7. Left atrial chamber dimension is mildly enlarged. 8. There is mild aortic valve sclerosis. 9. The mitral valve has mildly calcified annulus. 10. No pulmonary hypertension, estimated pulmonary arterial systolic pressure is 38 mmHg. Left Ventricle E/e' 20 is elevated. Global longitudinal strain is abnormal at -15.3%. Left ventricular chamber dimension is normal. Left ventricular systolic function is normal, estimated at 60-65%. There is mildly increased left ventricular wall thickness. The left ventricular diastolic function is abnormal. Right Ventricle Right ventricular chamber dimension is normal. Right ventricular systolic function is normal. Left Atria Left atrial chamber dimension is mildly enlarged. Right Atria Right atrial chamber dimension is normal. Aortic Valve The aortic valve is trileaflet. There is mild aortic valve sclerosis. There is no aortic valve stenosis. There is no aortic valve regurgitation. Pulmonic Valve There is no pulmonic regurgitation. Mitral Valve The mitral valve has mildly calcified annulus. There is no mitral valve stenosis. There is no mitral valve regurgitation. Tricuspid Valve There is no tricuspid valve regurgitation. No pulmonary hypertension, estimated pulmonary arterial systolic pressure is 38 mmHg. Pericardium/Pleural There is no pericardial effusion. Inferior Vena Cava Normal inferior vena cava with >50% collapse upon inspiration consistent with normal right atrial pressure, 5 mmHg. Aorta The aortic root size at the sinus of Valsalva is normal. Left Ventricular Outflow Tract Name Value Normal LVOT 2D LVOT Diameter 2.1 cm LVOT Doppler LVOT Peak Gradient 8 mmHg LVOT Mean Gradient 4 mmHg LVOT VTI 31 cm LVOT VTI/AV VTI Ratio 0.6 LVOT Stroke Volume 104 ml LVOT CO
[2019-10-18] MEDS: ACETAMINOPHEN 325 MG TABLET 650 MG PO ×3 (04:39→17:59)
[2019-10-18 05:14] LABS: Glucose Point of Care 225 (65-105)
[2019-10-18 06:23] LABS: Basophils Percent Auto 0.3 % (0.2-1.2); Eosinophils Percent Auto 0.2 % (0-4.4); Hematocrit 25.7 % (42.0-52.0); Hemoglobin 8.2 g/dL (14.0-18.0); Immature Granulocyte Absolute 0.03 K/mm3 (0.00-0.031); Immature Granulocyte Percent A 0.5 % (0-0.5); Lymphocytes Absolute Auto 1.23 K/mm3 (0.9-3.2); Mean Corpuscular HGB Conc 31.9 g/dl (32-36); Mean Corpuscular Volume 87.7 fl (80-100); Mean Platelet Volume 10.1 fl (7.4-10.4); Monocytes Absolute Auto 0.7 K/mm3 (0.1-0.6); Monocytes Percent Auto 11.5 % (2.6-8.5); Neutrophils Absolute Auto 4.4 K/mm3 (1.3-6.7); Neutrophils Percent Auto 68.5 % (45.5-73.1); Platelet Count Result 246 k/mm3 (150-375); Red Blood Count 2.93 M/mm3 (4.6-6.20); White Blood Count 6.5 K/mm3 (4.5-10.0)
[2019-10-18 06:35] LABS: Immature Reticulocyte Fraction 20.5 % (3.0-15.9); Reticulocyte Hemoglobin Conten 23.6 pg (28.2-35.7); Reticulocytes Absolute 0.06 B/L (32.2-175.7)
[2019-10-18 06:42] LABS: Anion Gap 9.2 mmol/L (7-16); Blood Urea Nitrogen 18 mg/dL (9-20); Calcium 8.6 mg/dL (8.4-10.2); Carbon Dioxide 27 mmol/L (22-30); Chloride 106 mmol/L (98-107); Estimated CRCL calculation 102 ml/min; Estimated Glomerular Filt Rate > 60; Glucose 149 mg/dL (75-110); Potassium 3.2 mmol/L (3.4-5.0); Sodium 139 mmol/L (137-145)
[2019-10-18 06:55] LABS: Hemoglobin A1C 6.6 % (<5.7)
[2019-10-18 07:34] LABS: Iron 26 ug/dL (49-181)
[2019-10-18 07:43] LABS: Percent Iron Saturation 7 % (20-50)
[2019-10-18] MEDS: ROSUVASTATIN 10 MG TABLET PO (08:20)
[2019-10-18] MEDS: PANTOPRAZOLE 40 MG TABLET PO (08:20)
[2019-10-18] MEDS: FLUoxetine HCL 20 MG CAPSULE 40 MG PO (08:20)
[2019-10-18] MEDS: ASPIRIN 325 MG ENTERIC TABLET PO (08:20)
[2019-10-18] MEDS: FERROUS SULFATE 324 MG TABLET 648 MG PO (08:20)
[2019-10-18] MEDS: DOCUSATE SODIUM 100 MG CAPSULE PO (08:21)
[2019-10-18] MEDS: amLODIPine BESYLATE 5 MG TABLET PO (08:21)
[2019-10-18] MEDS: OLMESARTAN MEDOXOMIL 20 MG TABLET 40 MG PO (08:21)
[2019-10-18] MEDS: ENOXAPARIN 40 MG/0.4 ML SYRINGE SUB-Q (08:22)
[2019-10-18] MEDS: NEBIVOLOL HCL 5 MG TABLET 20 MG PO (08:22)
[2019-10-18 08:36] LABS: Glucose Point of Care 158 (65-105)
[2019-10-18 09:04] LABS: Thyroid Stimulating Hormone Reflex 0.335 uIU/mL (0.465-4.68)
[2019-10-18] MEDS: ALBUTEROL SULFATE NEB 2.5 MG/0.5 ML INH 5 MG INHALATION ×3 (09:55→20:56)
[2019-10-18] MEDS: IPRATROPIUM BR 0.02% INH SOLN 0.5 MG/2.5 ML VIAL INHALATION ×3 (09:55→20:56)
[2019-10-18] MEDS: POTASSIUM CHLORIDE 20 MEQ TABLET 40 MEQ PO (10:03)
[2019-10-18] MEDS: CYANOCOBALAMIN INJ 1,000 MCG/ML VIAL 1000 MCG IM (10:04)
[2019-10-18 10:17] LABS: Lactate Dehydrogenase 611 U/L (313-618)
[2019-10-18] MEDS: INSULIN ASPART (*BKC) 100 UNITS/ML SUB-Q (13:08)
[2019-10-18 13:13] LABS: Glucose Point of Care 240 (65-105)
[2019-10-18 13:34] LABS: Free T4 Free Thyroxine Reflex 1.22 ng/dL (0.78-2.19)
--- NOTE | 2019-10-18 14:29 | PM.IMPN ---
Progress Note: A&P Assessment and Plan (1) Acute respiratory failure with hypoxia: Code(s): J96.01 - Acute respiratory failure with hypoxia Status: Acute Assessment and Plan: ----- likely due to pneumonia. Will wean oxygen as tolerated. Continue with breathing treatments and supplemental oxygen as needed. No CTA done on admission but the patient has improved with current treatment. PE seems less likely although he did have a prior surgery. Echo has no pulmonary hypertension and right ventricle has a normal systolic function. Detrimental PE less likely. (2) Bilateral pneumonia: Code(s): J18.9 - Pneumonia, unspecified organism Status: Acute Assessment and Plan: ----- Patient had a prior surgery and believes he was intubated. I have switched him to vancomycin and Zosyn due to his significant CT scan and recent surgery. Could have been due to aspiration during surgery. will try to induce sputum production and get a sputum sample. COVID-19 negative. (3) Essential hypertension: Code(s): I10 - Essential (primary) hypertension Status: Acute Assessment and Plan: ------ Last blood pressure 146/56. Continue home medications. (4) Type 2 diabetes mellitus with hyperglycemia: Code(s): E11.65 - Type 2 diabetes mellitus with hyperglycemia Status: Acute Assessment and Plan: ----- Last glucose 240. A1c 6.6. Continue sliding scale insulin (5) Anemia: Code(s): D64.9 - Anemia, unspecified Status: Acute Assessment and Plan: ----- B12 deficient. Will replace. (6) DVT prophylaxis: Code(s): Z29.9 - Encounter for prophylactic measures, unspecified Status: Acute Assessment and Plan: [facility] Time Spent With Patient Time with patient: 25 - 35 minutes Subjective Date/time seen: 10/18/19 14:29 Interval history: Pt is a 69-year-old male here for pneumonia. Patient was seen today and states he is feeling much better. Pt denies nausea, vomiting, fevers, chills, constipation, diarrhea, chest pain, sob, or abdominal pain. He says he currently smokes but this has been an eye greens keeper for him and he plans to not Continue. he is unsure if he usually wheezes. He says the breathing treatments do not necessarily help. He has not had any sputum production. Review of Systems Review of Systems: All systems reviewed & are unremarkable except as noted in HPI and below Exam Narrative: Exam Narrative: General: Well developed well nourished patient Resting comfortably in bed in NAD HEENT: normocephalic Neck: supple Neuro: Alert and oriented x4 CV:RRR Resp: expiratory crackles and some rhonchi Abd: Soft, non distended. No pain to palpation. Positive bowel sounds Extremities: No swelling, erythema, or pain to palpation. Objective Data Vital Signs Vital Signs: Vital Signs - 24 hr 10/17/19 16:00 10/17/19 20:00 10/17/19 20:47 Temperature Pulse Rate 73 83 75 Respiratory Rate 18 Blood Pressure Pulse Oximetry 93 10/17/19 20:59 10/17/19 21:01 10/17/19 22:00 Temperature 98.8 F Pulse Rate 80 82 94 Respiratory Rate 16 22 H Blood Pressure 125/61 Pulse Oximetry 94 93 10/17/19 22:15 10/18/19 00:00 10/18/19 00:10 Temperature Pulse Rate 77 87 71 Respiratory Rate 17 Blood Pressure Pulse Oximetry 97 93 10/18/19 04:00 10/18/19 06:00 10/18/19 08:00 Temperature 98.4 F Pulse Rate 67 78 68 Respiratory Rate 20 Blood Pressure 146/56 H Pulse Oximetry 93 10/18/19 08:22 10/18/19 09:55 10/18/19 09:58 Temperature Pulse Rate 66 72 Respiratory Rate 20 Blood Pressure Pulse Oximetry 91 10/18/19 10:02 10/18/19 13:26 10/18/19 13:32 Temperature Pulse Rate 74 79 82 Respiratory Rate 20 18 18 Blood Pressure Pulse Oximetry Intake/Output Intake/Output: Intake & Output 10/15/19 10/16/19 10/17/19 10/18/19 23:59 23:59 23:59
[2019-10-18 14:52] LABS: Total Triiodothyronine (T3) 1.04 NG/ML (0.97-1.69)
[2019-10-18] MEDS: LIDOCAINE 5% PATCH 1 PATCH TRANSDERM (15:33)
[2019-10-18 18:12] LABS: Glucose Point of Care 167 (65-105)
[2019-10-18 21:21] LABS: Glucose Point of Care 167 (65-105)
[2019-10-18] MEDS: oxyCODONE/ACETAMINOPHEN 5-325 MG TABLET 1 TABLET PO (21:32)
[2019-10-18] MEDS: guaiFENesin 12 HR 600 MG TABCR PO (21:38)
[2019-10-18] MEDS: SALINE 0.65% NAS SOLN 44 ML BTL 1 SPRAY NASAL (23:38)
[2019-10-19] VITALS (17 sets, daily range): BP systolic 137–142; BP diastolic 48–64; PULSE 79–89; RESP 18–22; TEMP 36.7–36.9; O2SAT 91–94
[2019-10-19] MEDS: IPRATROPIUM BR 0.02% INH SOLN 0.5 MG/2.5 ML VIAL INHALATION ×4 (01:52→20:57)
[2019-10-19] MEDS: ALBUTEROL SULFATE NEB 2.5 MG/0.5 ML INH 5 MG INHALATION ×4 (01:52→20:58)
[2019-10-19] MEDS: oxyCODONE/ACETAMINOPHEN 5-325 MG TABLET 1 TABLET PO ×3 (03:25→21:08)
[2019-10-19] MEDS: SODIUM CHLOR 3% 15 ML NEB (RESPIRATORY THERAPY) 6 ML INHALATION (05:08)
[2019-10-19 06:05] LABS: Hematocrit 25.6 % (42.0-52.0); Hemoglobin 8.1 g/dL (14.0-18.0); Mean Corpuscular HGB Conc 31.6 g/dl (32-36); Mean Corpuscular Hemoglobin 27.8 pg (26-34); Mean Platelet Volume 9.9 fl (7.4-10.4); Platelet Count Result 263 k/mm3 (150-375); Red Blood Count 2.91 M/mm3 (4.6-6.20); White Blood Count 6.8 K/mm3 (4.5-10.0)
[2019-10-19 06:48] LABS: Anion Gap 12.4 mmol/L (7-16); Blood Urea Nitrogen 10 mg/dL (9-20); Calcium 8.7 mg/dL (8.4-10.2); Carbon Dioxide 26 mmol/L (22-30); Chloride 102 mmol/L (98-107); Estimated CRCL calculation 118 ml/min; Estimated Glomerular Filt Rate > 60; Glucose 172 mg/dL (75-110); Potassium 3.4 mmol/L (3.4-5.0); Sodium 137 mmol/L (137-145)
[2019-10-19] MEDS: guaiFENesin 12 HR 600 MG TABCR PO ×2 (08:50→21:08)
[2019-10-19] MEDS: OLMESARTAN MEDOXOMIL 20 MG TABLET 40 MG PO (08:51)
[2019-10-19] MEDS: NEBIVOLOL HCL 5 MG TABLET 20 MG PO (08:51)
[2019-10-19] MEDS: LIDOCAINE 5% PATCH 1 PATCH TRANSDERM (08:53)
[2019-10-19] MEDS: DOCUSATE SODIUM 100 MG CAPSULE PO (08:54)
[2019-10-19] MEDS: PANTOPRAZOLE 40 MG TABLET PO (08:54)
[2019-10-19] MEDS: ENOXAPARIN 40 MG/0.4 ML SYRINGE SUB-Q (08:55)
[2019-10-19] MEDS: ROSUVASTATIN 10 MG TABLET PO (08:55)
[2019-10-19] MEDS: amLODIPine BESYLATE 5 MG TABLET PO (08:55)
[2019-10-19] MEDS: CYANOCOBALAMIN 1,000 MCG TABLET 1000 MCG PO (08:55)
[2019-10-19] MEDS: ASPIRIN 325 MG ENTERIC TABLET PO (08:55)
[2019-10-19] MEDS: FLUoxetine HCL 20 MG CAPSULE 40 MG PO (08:55)
[2019-10-19 09:16] LABS: Glucose Point of Care 171 (65-105)
[2019-10-19 13:48] LABS: Glucose Point of Care 180 (65-105)
--- NOTE | 2019-10-19 15:38 | PM.IMPN ---
Progress Note: A&P Assessment and Plan (1) Acute respiratory failure with hypoxia: Code(s): J96.01 - Acute respiratory failure with hypoxia Status: Acute Assessment and Plan: ----- likely due to pneumonia. Will wean oxygen as tolerated. Continue with breathing treatments and supplemental oxygen as needed. No CTA done on admission but PE seems less likely although he did have a prior surgery. Echo has no pulmonary hypertension and right ventricle has a normal systolic function. Detrimental PE less likely. Will order LE dopplers (2) Bilateral pneumonia: Code(s): J18.9 - Pneumonia, unspecified organism Status: Acute Assessment and Plan: ----- Patient had a prior surgery and believes he was intubated. I have switched him to vancomycin and Zosyn 10/17 due to his significant CT scan and recent surgery. Could have been due to aspiration during surgery. Sputum sample pending. COVID-19 negative. (3) Essential hypertension: Code(s): I10 - Essential (primary) hypertension Status: Acute Assessment and Plan: ------ Last blood pressure 137/62. Continue home medications. (4) Type 2 diabetes mellitus with hyperglycemia: Code(s): E11.65 - Type 2 diabetes mellitus with hyperglycemia Status: Acute Assessment and Plan: ----- glucose pretty well controlled. A1c 6.6. Continue sliding scale insulin (5) Anemia: Code(s): D64.9 - Anemia, unspecified Status: Acute Assessment and Plan: ----- B12 deficient. Will replace. (6) DVT prophylaxis: Code(s): Z29.9 - Encounter for prophylactic measures, unspecified Status: Acute Assessment and Plan: Lovenox (7) Hematuria: Code(s): R31.9 - Hematuria, unspecified Status: Acute Assessment and Plan: -----could be due to catheter on admission, renal stone, or less likely bladder cancer (smoker). will order renal u/s since pt is having right flank pain. Subjective Date/time seen: 10/19/19 15:39 Interval history: Pt is a 69-year-old male here for pneumonia. Patient was seen today with at bedside. He says he is not doing as well as he did yesterday. He says he is very worn out and he did not sleep very well. He has been starting to cough up phlegm. He is not really short of breath but is still utilizing oxygen. He noticed that he was having night sweats overnight and is still complaining of right flank pain. After talking about his hematuria and back pain again, he thinks he may be passed a kidney stone as he has had multiple kidney stones in the past. He is having hematuria every once in a while but improving but the back pain seems to be persistent. He has not had any chest pain, abdominal pain, diarrhea, constipation, leg swelling, nausea or vomiting. His last bowel movement was yesterday. Exam Narrative: Exam Narrative: General: Well developed well nourished patient Resting comfortably in bed in [facility] HEENT: normocephalic Neck: supple Neuro: Alert and oriented x4 CV:RRR Resp: expiratory crackles, wheezing and some rhonchi Abd: Soft, non distended. No pain to palpation. Positive bowel sounds Extremities: No swelling, erythema, or pain to palpation. Objective Data Vital Signs Vital Signs: Vital Signs - 24 hr 10/18/19 16:00 10/18/19 20:58 10/18/19 21:03 Temperature Pulse Rate 72 78 75 Respiratory Rate 20 20 Blood Pressure Pulse Oximetry 10/18/19 22:00 10/18/19 22:36 10/19/19 01:54 Temperature 98.5 F Pulse Rate 88 88 Respiratory Rate 20 18 Blood Pressure 157/80 H Pulse Oximetry 95 89 L 10/19/19 01:59 10/19/19 03:37 10/19/19 05:08 Temperature Pulse Rate 81 89 Respiratory Rate 20 20 Blood Pressure Pulse Oximetry 92 10/19/19 05:09 10/19/19 06:00 10/19/19 08:51 Temperature 98.1 F Pulse Rate 85 80 Respiratory Rate 20 Blood Pressure 141/64 H Pulse O
[2019-10-19 18:46] LABS: Glucose Point of Care 176 (65-105)
[2019-10-19] MEDS: MELATONIN 5 MG TABLET PO (21:08)
[2019-10-19] MEDS: ALPRAZolam 0.25 MG TABLET PO (21:09)
[2019-10-19 22:34] LABS: Glucose Point of Care 249 (65-105)
[2019-10-19] MEDS: SALINE 0.65% NAS SOLN 44 ML BTL 1 SPRAY NASAL (22:57)
[2019-10-20] VITALS (17 sets, daily range): BP systolic 135–150; BP diastolic 51–73; PULSE 71–97; RESP 18–20; TEMP 36.4–37.2; O2SAT 90–97
[2019-10-20] MEDS: ALBUTEROL SULFATE NEB 2.5 MG/0.5 ML INH 5 MG INHALATION ×4 (02:56→19:56)
[2019-10-20] MEDS: IPRATROPIUM BR 0.02% INH SOLN 0.5 MG/2.5 ML VIAL INHALATION ×4 (02:56→19:56)
[2019-10-20] MEDS: ACETAMINOPHEN 325 MG TABLET 650 MG PO ×2 (04:11→14:39)
[2019-10-20] MEDS: SODIUM CHLOR 3% 15 ML NEB (RESPIRATORY THERAPY) 6 ML INHALATION (05:50)
[2019-10-20 06:30] LABS: Hemoglobin 7.7 g/dL (14.0-18.0); Mean Corpuscular HGB Conc 32.1 g/dl (32-36); Mean Corpuscular Hemoglobin 27.7 pg (26-34); Mean Corpuscular Volume 86.3 fl (80-100); Mean Platelet Volume 9.5 fl (7.4-10.4); Platelet Count Result 248 k/mm3 (150-375); Red Blood Count 2.78 M/mm3 (4.6-6.20); Red Cell Distribution Width 14.7 % (11.5-14.5)
[2019-10-20 06:52] LABS: Alanine Aminotransferase 33 U/L (4-50); Albumin Level 3.4 g/dL (3.5-5.1); Alkaline Phosphatase 72 U/L (38-126); Anion Gap 11.5 mmol/L (7-16); Aspartate Amino Transferase 29 U/L (17-59); Blood Urea Nitrogen 10 mg/dL (9-20); Calcium 8.5 mg/dL (8.4-10.2); Carbon Dioxide 27 mmol/L (22-30); Chloride 100 mmol/L (98-107); Estimated CRCL calculation 102 ml/min; Estimated Glomerular Filt Rate > 60; Glucose 224 mg/dL (75-110); Magnesium 1.5 mg/dL (1.6-2.3); Potassium 3.5 mmol/L (3.4-5.0); Sodium 135 mmol/L (137-145)
[2019-10-20 07:05] LABS: CRP 21.4 mg/dL (<1.0)
[2019-10-20] MEDS: polyethylene glycoL 3350 17 GM POWD.PACK PO (08:37)
[2019-10-20] MEDS: FERROUS SULFATE 324 MG TABLET 648 MG PO (08:37)
[2019-10-20] MEDS: CYANOCOBALAMIN 1,000 MCG TABLET 1000 MCG PO (08:38)
[2019-10-20] MEDS: ASPIRIN 325 MG ENTERIC TABLET PO (08:38)
[2019-10-20] MEDS: amLODIPine BESYLATE 5 MG TABLET PO (08:38)
[2019-10-20] MEDS: ENOXAPARIN 40 MG/0.4 ML SYRINGE SUB-Q (08:39)
[2019-10-20] MEDS: FLUoxetine HCL 20 MG CAPSULE 40 MG PO (08:39)
[2019-10-20] MEDS: DOCUSATE SODIUM 100 MG CAPSULE PO (08:39)
[2019-10-20] MEDS: LIDOCAINE 5% PATCH 1 PATCH TRANSDERM (08:40)
[2019-10-20] MEDS: guaiFENesin 12 HR 600 MG TABCR PO ×2 (08:40→20:20)
[2019-10-20] MEDS: ROSUVASTATIN 10 MG TABLET PO (08:41)
[2019-10-20] MEDS: NEBIVOLOL HCL 5 MG TABLET 20 MG PO (08:41)
[2019-10-20] MEDS: OLMESARTAN MEDOXOMIL 20 MG TABLET 40 MG PO (08:42)
[2019-10-20] MEDS: PANTOPRAZOLE 40 MG TABLET PO (08:42)
[2019-10-20 10:41] LABS: Glucose Point of Care 192 (65-105)
[2019-10-20] MEDS: MAGNESIUM OXIDE 400 MG TABLET PO (12:02)
--- NOTE | 2019-10-20 12:50 | PM.IMPN ---
Progress Note: A&P Assessment and Plan (1) Acute respiratory failure with hypoxia: Code(s): J96.01 - Acute respiratory failure with hypoxia Status: Acute Assessment and Plan: ----- likely due to pneumonia. unable to be weaned off oxygen at this time as he was short of breath after going to the bathroom and back and was satting 85% during my exam. We placed him back on 1L and his oxygen improved to 92%. Continue with breathing treatments and supplemental oxygen as needed. No CTA done on admission but PE seems less likely although he did have a prior surgery. Echo has no pulmonary hypertension and right ventricle has a normal systolic function. patient is improving with current therapy. Detrimental PE less likely. No lower extremity DVTs. (2) Bilateral pneumonia: Code(s): J18.9 - Pneumonia, unspecified organism Status: Acute Assessment and Plan: ----- Patient had a prior surgery and believes he was intubated. I have switched him to vancomycin and Zosyn 10/17 due to his significant CT scan and recent surgery. Could have been due to aspiration during surgery. Sputum sample pending. COVID-19 negative. (3) Essential hypertension: Code(s): I10 - Essential (primary) hypertension Status: Acute Assessment and Plan: ------ Last blood pressure 150/73. Continue home medications. (4) Type 2 diabetes mellitus with hyperglycemia: Code(s): E11.65 - Type 2 diabetes mellitus with hyperglycemia Status: Acute Assessment and Plan: ----- glucose pretty well controlled. A1c 6.6. Continue sliding scale insulin (5) Anemia: Code(s): D64.9 - Anemia, unspecified Status: Acute Assessment and Plan: ----- B12 deficient. Will replace. (6) DVT prophylaxis: Code(s): Z29.9 - Encounter for prophylactic measures, unspecified Status: Acute Assessment and Plan: Lovenox (7) Hematuria: Code(s): R31.9 - Hematuria, unspecified Status: Acute Assessment and Plan: -----could be due to catheter on admission, renal stone, or less likely bladder cancer (smoker). renal u/s looks okay. Subjective Date/time seen: 10/20/19 12:50 Interval history: Pt is a 69-year-old male here for pneumonia. Patient was seen today with at bedside. patient states he is feeling better today than compared to yesterday. He is still coughing but does not feel short of breath. During my exam his pulse oximetry was reading 85 and he said he felt fine. He was really wanting to go home. He slept better overnight tonight and did not have any night sweats. He is eating and drinking well. He denies chest pain, fevers, leg swelling, nausea or vomiting. Exam Narrative: Exam Narrative: General: Well developed well nourished patient Resting comfortably in bed in NAD HEENT: normocephalic Neck: supple Neuro: Alert and oriented x4 CV:RRR Resp: Left lung with wheezing and rhonchi. Right lung sounds improved and were clear Abd: Soft, non distended. No pain to palpation. Positive bowel sounds Extremities: No swelling, erythema, or pain to palpation. Objective Data Vital Signs Vital Signs: Vital Signs - 24 hr 10/19/19 14:00 10/19/19 15:44 10/19/19 15:55 Temperature 98.5 F Pulse Rate 81 85 85 Respiratory Rate 22 H 20 20 Blood Pressure 137/62 Pulse Oximetry 93 10/19/19 21:00 10/19/19 21:01 10/19/19 21:10 Temperature Pulse Rate 79 82 Respiratory Rate 20 20 Blood Pressure Pulse Oximetry 91 10/19/19 22:00 10/20/19 02:57 10/20/19 03:07 Temperature 98.1 F Pulse Rate 88 73 73 Respiratory Rate 20 20 20 Blood Pressure 142/48 H Pulse Oximetry 93 10/20/19 05:50 10/20/19 05:55 10/20/19 06:00 Temperature 97.5 F L Pulse Rate 71 76 81 Respiratory Rate 20 20 20 Blood Pressure 146/66 H Pulse Oximetry 93 10/20/19 07:56 10/20/19 07:57 10/20/19 08:34 T
[2019-10-20] MEDS: INSULIN ASPART (*BKC) 100 UNITS/ML SUB-Q (13:52)
[2019-10-20 15:03] LABS: Vancomycin Trough 7.5 ug/mL (10.0-20.0)
[2019-10-20 15:42] LABS: Glucose Point of Care 252 (65-105)
[2019-10-20 19:03] LABS: Glucose Point of Care 143 (65-105)
[2019-10-20] MEDS: MELATONIN 5 MG TABLET PO (20:20)
[2019-10-20] MEDS: ALPRAZolam 0.25 MG TABLET PO (20:20)
[2019-10-20 22:28] LABS: Glucose Point of Care 341 (65-105)
[2019-10-20 23:09] LABS: Pneumococcal Antigen Urine Not Detected (Not Detected)
[2019-10-20] MEDS: oxyCODONE/ACETAMINOPHEN 5-325 MG TABLET 1 TABLET PO (23:10)
[2019-10-21] VITALS (11 sets, daily range): BP systolic 137–168; BP diastolic 62–73; PULSE 71–85; RESP 18–20; TEMP 36.4–36.5; O2SAT 90–95
[2019-10-21] MEDS: ALBUTEROL SULFATE NEB 2.5 MG/0.5 ML INH 5 MG INHALATION ×3 (01:48→13:54)
[2019-10-21] MEDS: IPRATROPIUM BR 0.02% INH SOLN 0.5 MG/2.5 ML VIAL INHALATION ×3 (01:48→13:54)
[2019-10-21 06:06] LABS: Hematocrit 25.5 % (42.0-52.0); Hemoglobin 8.2 g/dL (14.0-18.0); Mean Corpuscular HGB Conc 32.2 g/dl (32-36); Mean Platelet Volume 9.9 fl (7.4-10.4); Platelet Count Result 282 k/mm3 (150-375); Red Blood Count 2.93 M/mm3 (4.6-6.20); Red Cell Distribution Width 14.7 % (11.5-14.5); White Blood Count 6.2 K/mm3 (4.5-10.0)
[2019-10-21] MEDS: ACETAMINOPHEN 325 MG TABLET 650 MG PO (06:15)
[2019-10-21 06:21] LABS: Anion Gap 10.2 mmol/L (7-16); Blood Urea Nitrogen 7 mg/dL (9-20); Calcium 8.4 mg/dL (8.4-10.2); Carbon Dioxide 27 mmol/L (22-30); Chloride 100 mmol/L (98-107); Estimated CRCL calculation 118 ml/min; Estimated Glomerular Filt Rate > 60; Glucose 252 mg/dL (75-110); Magnesium 1.7 mg/dL (1.6-2.3); Potassium 3.2 mmol/L (3.4-5.0); Sodium 134 mmol/L (137-145)
[2019-10-21] MEDS: ENOXAPARIN 40 MG/0.4 ML SYRINGE SUB-Q (08:33)
[2019-10-21] MEDS: NEBIVOLOL HCL 5 MG TABLET 20 MG PO (08:34)
[2019-10-21] MEDS: OLMESARTAN MEDOXOMIL 20 MG TABLET 40 MG PO (08:34)
[2019-10-21] MEDS: guaiFENesin 12 HR 600 MG TABCR PO (08:34)
[2019-10-21] MEDS: ROSUVASTATIN 10 MG TABLET PO (08:36)
[2019-10-21] MEDS: FLUoxetine HCL 20 MG CAPSULE 40 MG PO (08:36)
[2019-10-21] MEDS: MAGNESIUM OXIDE 400 MG TABLET PO (08:36)
[2019-10-21] MEDS: CYANOCOBALAMIN 1,000 MCG TABLET 1000 MCG PO (08:36)
[2019-10-21] MEDS: amLODIPine BESYLATE 5 MG TABLET PO (08:37)
[2019-10-21] MEDS: DOCUSATE SODIUM 100 MG CAPSULE PO (08:37)
[2019-10-21] MEDS: ASPIRIN 325 MG ENTERIC TABLET PO (08:37)
[2019-10-21] MEDS: PANTOPRAZOLE 40 MG TABLET PO (08:37)
[2019-10-21] MEDS: POTASSIUM CHLORIDE 20 MEQ TABLET 40 MEQ PO (08:40)
[2019-10-21 10:18] LABS: Glucose Point of Care 198 (65-105)
[2019-10-21 12:37] LABS: Glucose Point of Care 293 (65-105)
[2019-10-21] MEDS: INSULIN ASPART (*BKC) 100 UNITS/ML SUB-Q (13:19)
--- NOTE | 2019-10-21 14:19 | PM.DS ---
DS: Admitting Diagnosis Admitting Diagnosis Admitting Diagnosis: Acute respiratory failure with hypoxia DS: Discharge Diagnosis Discharge Diagnosis (1) Acute respiratory failure with hypoxia: Code(s): J96.01 - Acute respiratory failure with hypoxia Status: Acute Assessment and Plan: ----- likely due to pneumonia. He was able to be weaned off oxygen the day of discharge. No CTA done on admission but PE seems less likely since this improved of abx therapy although he did have a prior surgery. No LE DVTS. Echo has no pulmonary hypertension and right ventricle has a normal systolic function. (2) Bilateral pneumonia: Code(s): J18.9 - Pneumonia, unspecified organism Status: Acute Assessment and Plan: ----- Patient had a prior surgery and believes he was intubated. He was started on ceftriaxone and azithromycin but did not improve so he was switched to vancomycin and Zosyn 10/17 due to his significant CT scan and recent surgery. Could have been due to aspiration during surgery. Sputum cx x 2 was a mouth contaminate. COVID-19 negative. Discharged on Levaquin and doxy. (3) Essential hypertension: Code(s): I10 - Essential (primary) hypertension Status: Acute Assessment and Plan: ------ Last blood pressure 137/62. Continue home medications. (4) Type 2 diabetes mellitus with hyperglycemia: Code(s): E11.65 - Type 2 diabetes mellitus with hyperglycemia Status: Acute Assessment and Plan: ----- glucose pretty well controlled. A1c 6.6. Continue sliding scale insulin (5) Anemia: Code(s): D64.9 - Anemia, unspecified Status: Acute Assessment and Plan: ----- B12 deficient. B12 prescription called in 10/22/19 and I left a message with the patient to give me a call back to inform him. (6) DVT prophylaxis: Code(s): Z29.9 - Encounter for prophylactic measures, unspecified Status: Acute Assessment and Plan: Lovenox While he was hospitalized (7) Hematuria: Code(s): R31.9 - Hematuria, unspecified Status: Acute Assessment and Plan: -----could be due to catheter on admission, renal stone, or less likely bladder cancer (smoker). renal u/s looks okay. patient plans to follow-up with his primary care physician and possibly Urology DS: Summary Hospital Course Reason for hospitalization: pneumonia Hospital Course: patient is a 69-year-old male who just previously had surgery to replace his left shoulder who presented emergency room for shortness of breath and cough found to have pneumonia. vitals in the ER were temperature 98.4?, pulse 97, respiratory rate 29, blood pressure 187/79, pulse ox 84 on room air. White blood cell count 8.1, hemoglobin 9.2, hematocrit 28.6, glucose 214. BMP relatively within normal limits. Chest x-ray showed bilateral airspace disease either edema or pneumonia. Chest CT was done which showed extensive bilateral patchy airspace consolidation compatible with pneumonia. Patient was originally started on ceftriaxone and azithromycin and was admitted to the hospitalist service. He was tested for COVID-19 which was negative. He did not improve with the ceftriaxone and azithromycin so this was transition to vancomycin and Zosyn due to having prior surgery. The patient improved with this treatment and was able to be weaned off oxygen. Carlos see further details above. The day of discharge the patient was feeling great and ready to go. He was educated about the worrisome signs and symptoms to come back to emergency room for. He does need a repeat chest x-ray in 1 month and I called Dr. Henson office and spoke to 1 of the PAs and she is gong to follow up with this. Status at Discharge Functional status at discharge: independent ambulation Overall status at discharge: patient is progressing back to baseline Time Spent with Patient Time attestation: Total
[2019-10-21 15:48] LABS: Legionella pneumophila Ag Ur Not Detected (Not Detected)
[2019-10-23 00:40] LABS: Albumin 2.8 g/dL (3.8-4.8); Alpha 1 Globulin 0.5 g/dL (0.2-0.3); Alpha 2 Globulin 0.9 g/dL (0.5-0.9); Beta 1 Globulin 0.5 g/dL (0.4-0.6); Gamma Globulin 0.5 g/dL (0.8-1.7); Protein, Total 5.6 g/dL (6.1-8.1)
--- NOTE | 2019-10-25 10:52 | PC.NURSE ---
Blood cx is negative.
== END 2019-10-21 15:25 | disposition home or self-care (01) | DRG 193 ==
LOC: ANHED 02:17 → ANH3MEDSUR 02:46
PROVIDERS: Internal Medicine; Physician Assistant; Admitting Provider Family Medicine; Emergency Provider Emergency Medicine; PCP Family Medicine; Visit Provider Internal Medicine
DX: J18.9 Pneumonia, unspecified organism (principal); J96.01 Acute respiratory failure with hypoxia; Z20.828 Contact with and (suspected) exposure to other viral communicable diseases; I10 Essential (primary) hypertension; E11.65 Type 2 diabetes mellitus with hyperglycemia; D51.9 Vitamin B12 deficiency anemia, unspecified; R31.9 Hematuria, unspecified; K57.90 Diverticulosis of intestine, part unspecified, without perforation or abscess without bleeding; F17.210 Nicotine dependence, cigarettes, uncomplicated; E78.5 Hyperlipidemia, unspecified; G47.33 Obstructive sleep apnea (adult) (pediatric); N52.9 Male erectile dysfunction, unspecified; Z96.612 Presence of left artificial shoulder joint; Z87.442 Personal history of urinary calculi
CPT/HCPCS: 36415; 71046; 76775; 80048; 80053; 80076; 80202; 81001; 82607; 82728; 83036; 83540; 83550; 83605; 83615; 83735; 84155; 84165; 84439; 84443; 84480; 85025; 85027; 85046; 86140; 87040; 87070; 87205; 87449; 87899; 93005; 93306; 93970; 94640; 96365; 96372; 96375; 99291; A9270; G0378; J0456; J0696; J1100; J1650; J1815; J2543; J3370; J3420

== ENCOUNTER 2019-12-13 08:54 | Outpatient (CLI) | payer MEDICARE, SELFPAY ==
--- NOTE | ~2019-12-13 | XR_ITS ---
EXAMINATION: XR chest 2V EXAM DATE: 12/13/2019 09:10 INDICATION: Follow-up. TECHNIQUE: Frontal and lateral projections of the chest obtained and reviewed. Comparison is made to prior examination from 10/19/2019. FINDINGS: The lungs are clear. There are no pleural effusions. The cardiomediastinal silhouette is within normal limits. There is no pneumothorax suspected. Left shoulder replacement. There are mild bony degenerative changes. IMPRESSION: Resolution of previously seen extensive bilateral perihilar pneumonia. Reviewed, dictated and finalized at location A. IMPRESSION: Resolution of previously seen extensive bilateral perihilar pneumon ia.
== END 2019-12-13 08:55 | disposition home or self-care (01) ==
LOC: ANHIMG 08:58
PROVIDERS: PCP Family Medicine; Visit Provider Family Medicine
DX: J18.9 Pneumonia, unspecified organism (principal)
CPT/HCPCS: 71046

== ENCOUNTER 2020-01-04 06:09 | Outpatient (CLI) | payer MEDICARE, SELFPAY ==
--- NOTE | 2020-01-04 06:46 | SUR.OPER ---
Patient brought to GI Lab. Instructions for patient undergoing Capsule Endoscopy reviewed with patient. Consent form signed. Sensor array applied to patient's abdomen and connected to recorded. Patient swallowed capsule with ozs of water infused with Simethicone. Patient instructed they may have clear liquids at 0830 this AM and eat or drink at 1030 this AM. Patient instructed to return to GI Lab at 1500 this afternoon for removal of recording device and to call [phone] or to return to the hospital if any nausea and vomiting or abdominal pain is experienced.
--- NOTE | 2020-01-04 15:38 | SUR.OPER ---
Patient returned to the GI Lab at 1500 for recorder box removal. Patient voiced no complaints. States they have understanding of instructions. Patient left ambulatory.
== END 2020-01-04 06:10 | disposition home or self-care (01) ==
LOC: ANHENDO 06:10
PROVIDERS: PCP Family Medicine; Visit Provider Internal Medicine Gastroenterology
PROC: 0DJ07ZZ Inspection of Upper Intestinal Tract, Via Natural or Artificial Opening (ICD-10-PCS; CPT 91110; principal; 2020-01-04 07:00)
DX: D64.9 Anemia, unspecified (principal)
CPT/HCPCS: 91110

== ENCOUNTER 2020-01-19 12:26 | Outpatient (CLI) | payer MEDICARE, SELFPAY ==
--- NOTE | ~2020-01-19 | CT_ITS ---
EXAMINATION: CT lung screening DATE: 01/19/2020 12:42 INDICATION: Personal history of tobacco dependence, current smoker with 40 pack year history TECHNIQUE: Computed tomography (CT) of the chest was performed without intravenous contrast. The dose -length product (DLP) was 236.34 mGy-cm. Automated exposure control and iterative reconstruction tech DLC were employed. COMPARISON: 10/16/2019, 01/04/2018 FINDINGS: No suspicious pulmonary nodules are identified. Calcified pulmonary nodules and calcified r ight hilar lymph nodes are consistent with old granulomatous disease. The lungs are free of acute opa cities. There is no pleural effusion or pneumothorax. No pathologically enlarged thoracic lymph nodes are identified. The heart size is normal. Calcified coronary artery atherosclerosis is noted. IMPRESSION: 1. Lung-RADS category 1: Negative. Continue annual screening with noncontrast low-dose chest CT in 12 months. Reviewed, dictated and finalized at location A. [employer] IMPRESSION: 1. Lung-RADS category 1: Negative. Continue annual screening with noncontrast l ow-dose chest CT in 12 months.
== END 2020-01-19 12:27 | disposition home or self-care (01) ==
PROVIDERS: PCP Family Medicine; Visit Provider Nurse Practitioner Adult Health
DX: Z12.2 Encounter for screening for malignant neoplasm of respiratory organs (principal); Z87.891 Personal history of nicotine dependence
CPT/HCPCS: G0297

== ENCOUNTER → 2020-12-25 09:39 | Outpatient (CLI) | payer MEDICARE, SELFPAY ==
[2020-12-25 16:22] LABS: SARS-CoV-2 RNA PCR Negative
== END ==
PROVIDERS: PCP Family Medicine; Visit Provider Nurse Practitioner Family
DX: R05.9 Cough, unspecified (principal); R68.89 Other general symptoms and signs; Z20.822 Contact with and (suspected) exposure to COVID-19
CPT/HCPCS: C9803; U0003; U0005

== ENCOUNTER → 2021-03-26 10:14 | Outpatient (CLI) | payer MEDICARE, SELFPAY ==
[2021-03-26 15:15] LABS: Influenza Control Positive
[2021-03-26 21:02] LABS: SARS-CoV-2 RNA PCR Positive
== END ==
PROVIDERS: PCP Family Medicine; Visit Provider Physician Assistant
DX: U07.1 COVID-19 (principal)
CPT/HCPCS: 87804; C9803; U0003; U0005

== ENCOUNTER 2021-05-16 09:14 | Outpatient (CLI) | payer MEDICARE, SELFPAY ==
--- NOTE | ~2021-05-16 | CT_ITS ---
EXAMINATION:CT lung screening DATE: 05/16/2021 09:27 INDICATION: Personal history of nicotine dependence. Current smoker with 50 pack year history. TECHNIQUE: Computed tomography (CT) of the chest was performed without intravenous contrast. Automate d exposure control and iterative reconstruction technique were employed. The dose-length product (DLP ) was 228.14 mGy-cm. COMPARISON: Chest CT 01/19/2020 FINDINGS: There are small pleural effusions. There are patchy groundglass and airspace opacities in a ll lobes. There is smooth septal thickening bilaterally. A calcified right lung nodule and calcified right hilar and mediastinal lymph nodes are consistent with old granulomatous disease. The heart size is normal. There are coronary artery calcifications. No pericardial effusion. There are calcificatio ns of the aortic valve. Calcifications in the spleen are consistent with old granulomatous disease. T here is diffuse hepatic steatosis. There is a left shoulder arthroplasty. There is mild thoracic spon dylosis. IMPRESSION: 1. Lung-RADS category 2S: Benign appearance or behavior. Continue annual screening with noncontrast l ow-dose chest CT in 12 months. 2. Diffuse lung disease, consistent with pulmonary edema versus atypical pneumonia. 3. Small pleural effusions. Reviewed, dictated and finalized at location A. [employer] CLE[employer] IMPRESSION: 1. Lung-RADS category 2S: Benign appearance or behavior. Continue annual screen ing with noncontrast low-dose chest CT in 12 months. 2. Diffuse lung disease, consistent with pulmonary edema versus atypical pneumo clare. 3. Small pleural effusions.
== END 2021-05-16 09:15 | disposition home or self-care (01) ==
LOC: ANHIMG 09:16
PROVIDERS: PCP Family Medicine; Visit Provider Nurse Practitioner Family
DX: Z12.2 Encounter for screening for malignant neoplasm of respiratory organs (principal); Z87.891 Personal history of nicotine dependence
CPT/HCPCS: 71271

== ENCOUNTER 2021-06-03 10:01 | Outpatient (CLI) | payer MEDICARE, SELFPAY ==
--- NOTE | 2021-06-03 16:17 | WPDPFTINT ---
PFT Procedure Performed PFT Procedure Performed Spirometry with Pre/Post Bronchodilator Plethysmography (Lung Vol) Diffusing Cap (DLCO) Flow Vol Loop PFT Interpretation This is a pulmonary function test with pre and post-bronchodilator spirometry, plethysmography and diffusing capacity. The test was performed and results interpreted in accordance with the 2019 and 2005 ATS/ERS Task Force guidelines respectively using the Global Lung Function Initiative-2012 reference equations. Patient demonstrated good effort and cooperation. Reproducibility criteria were met. The quality of the pre bronchodilator spirometry maneuver was Grade A and post bronchodilator spirometry maneuver was Grade A. Findings: Spirometry: There is decreased maximal expiratory airflow at low lung volumes with a mildly concave expiratory flow tracing. The contour of the inspiratory flow tracing is normal. The pre bronchodilator FVC is 3.58 L, 89% predicted. The pre bronchodilator FEV1 is 2.48 L, 81% predicted. The pre bronchodilator FEV1: FVC ratio 69%. The post bronchodilator FVC is 3.60 L, representing 1% increase. The post bronchodilator FEV1 is 2.67 L, representing a 7% increase. The post bronchodilator FEV1: FVC ratio 74%. Plethysmography: The total lung capacity is 6.64 L, 100% predicted. The functional residual capacity is 3.73 L, 107% predicted. The residual volume is 2.70 L, 116% predicted. Diffusing capacity: The diffusion capacity unadjusted for hemoglobin and carboxyhemoglobin is 15.3, 60% predicted. The diffusing capacity adjusted for alveolar volume is 2.92, 71% predicted. Impression: The slow vital capacity is greater than forced vital capacity with a mildly concave expiratory tracing and a low FEV1: FVC ratio with a normal FEV1. This is suggestive of small airways disease. There is no significant improvement after inhaling a single dose of albuterol. The lung volumes are normal. The diffusing capacity is normal. The diffusing capacity unadjusted for hemoglobin and carboxyhemoglobin is moderately decreased and normalizes when adjusted for alveolar volume. There are no prior studies for comparison
== END 2021-06-03 10:02 | disposition home or self-care (01) ==
LOC: ANHPFT 10:03
PROVIDERS: PCP Family Medicine; Visit Provider Nurse Practitioner Family
DX: R06.02 Shortness of breath (principal); R05.9 Cough, unspecified; F17.200 Nicotine dependence, unspecified, uncomplicated; R94.2 Abnormal results of pulmonary function studies
CPT/HCPCS: 94060; 94726; 94729

== ENCOUNTER 2021-07-15 00:42 | Day surgery (SDC) | payer MEDICARE, SELFPAY ==
[2021-07-01 14:08] VITALS: BMI 35.2
[2021-07-15 08:53] VITALS: BP 117/60; PULSE 65; RESP 20; TEMP 36.1; O2SAT 98
[2021-07-15] MEDS: LACTATED RINGERS 1,000 ML 150 ML IV CONT (09:05)
[2021-07-15 09:07] LABS: Glucose Point of Care 134 mg/dl (65-105)
--- NOTE | 2021-07-15 09:21 | WPDANESEPPF ---
Anes - Initial Pre Proc Eval Procedure: Operation Date: 07/15/21 09:45 Proposed Procedures p Colonoscopy - Carlos Eduardo Duong MD s [facility] Hemorrhoid Treatment - Carlos Eduardo Duong MD Date/Time: 07/15/21 09:21 Surgeon: Carlos Eduardo Duong MD Pre Op Diagnosis: Rectal bleeding, hemorrhoids Patient Data Age: 71 Gender: M Height: 1.7 m Weight: 101.5 kg Last Vital Signs Temp 96.9 F L 07/15/21 08:53 Pulse 65 07/15/21 08:53 Resp 20 07/15/21 08:53 BP 117/60 07/15/21 08:53 Pulse Ox 98 07/15/21 08:53 Allergies Allergy/AdvReac Type Severity Reaction Status Date / Time No Known Allergies Allergy Unknown Verified 07/15/21 08:48 Home Medications Medication Instructions Recorded Confirmed Type sildenafil 100 mg tablet 100 mg PO DAILY PRN #6 tablet 08/10/19 07/03/21 Rx rosuvastatin 10 mg tablet 10 mg PO DAILY #90 tablet 10/31/20 07/03/21 Rx metformin 500 mg tablet,extended 2,000 mg PO DAILY #360 tablet 11/30/20 07/03/21 Rx release 24hr etodolac 400 mg tablet 400 mg PO BID #180 tablet 12/24/20 07/03/21 Rx ferrous sulfate 325 mg (65 mg See Rx Instructions .ROUTE 01/16/21 07/03/21 Rx iron) tablet .COMPLEX #60 tablet pantoprazole 40 mg tablet,delayed 40 mg PO QAM #90 tablet 03/11/21 07/03/21 Rx release linagliptin 5 mg tablet See Rx Instructions .ROUTE 04/08/21 07/03/21 Rx .COMPLEX #90 tablet nebivolol 20 mg tablet 20 mg PO DAILY #90 tablet 04/08/21 07/03/21 Rx tamsulosin 0.4 mg capsule 0.4 mg PO QHS #90 cap 04/30/21 07/03/21 Rx albuterol sulfate 90 mcg/actuation 1 - 2 puff INHALATION Q4H PRN #6.7 05/13/21 07/03/21 Rx aerosol inhaler g fluoxetine 40 mg capsule 40 mg PO QAM #90 cap 05/17/21 07/03/21 Rx glipizide 10 mg tablet 10 mg PO BID #180 tablet 05/17/21 07/03/21 Rx olmesartan 40 mg-amlodipine 10 1 tablet PO DAILY #90 tablet 05/29/21 07/03/21 Rx mg-hydrochlorothiazide 12.5 mg tablet amoxicillin 500 mg PO QID 07/01/21 07/03/21 History Laboratory Tests 07/15/21 08:58 POC Capillary Glucose 134 mg/dl H mg/dl (65-105) Patient hx anesthesia problems: none Family hx anesthesia problems: none Results Review: All pre-operative results and documents have been reviewed as part of the pre-operative evaluation. [facility] Past Medical History Medical History Abnormal gastric folds Aftercare following left shoulder joint replacement surgery Chronic GERD Diverticulosis Erectile dysfunction Essential hypertension HLD (hyperlipidemia) Internal hemorrhoid Left shoulder pain LUQ abdominal pain Obesity (BMI 30.0-34.9) YASMANY (obstructive sleep apnea) Pure hypercholesterolemia Status post fall Type 2 diabetes mellitus with hyperglycemia Type 2 diabetes mellitus without complication, without long-term current use of insulin Surgical History Surgical History H/O shoulder surgery this past week at [facility]. History of appendectomy S/P bilateral inguinal herniorrhaphy Family History Family History Mother Patient's mother is , Onset Age: 62 Family history of malignant neoplasm of ovary Hypertension Father Patient's father is in good health Social History Social History Social History: The patient tells me that he lives with his . 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 The patient stated that he does continue to smoke but he plans on quitting today. The patient is a full code. Smoking packs per day: 1 Smoking cigarettes per day: 20.0 Years smoked: 50 Smoking pack-years: 50.00 Smoking status: Current every day smoker Tobacco type: cigarettes Second hand tobacco smoke exposure: Yes Alcohol intake: current Drinks per week: 12 Substance use: never Substance u
--- NOTE | 2021-07-15 09:22 | PM.HPGS ---
History of Present Illness History of Present Illness Consent: Risks, benefits, and alternatives have been discussed and questions answered. Patient agrees to proceed with procedure. Chief complaint: Rectal bleeding, hemorrhoids Narrative: Tolu Franklin is a 71 year old male with history of anemia, last colonoscopy 2019 with diverticulosis and hemorrhoids. SB capsule showed possible AVM in ileum, nothing else to explain anemia. Recently also noted brbpr and wonder if from hemorrhoids, he is seeing hematology. Review of Systems Constitutional: Constitutional: Denies headache(s) and Denies weakness Eyes: Eyes: Denies blurry vision ENT: Reports Normal hearing present, Denies headache(s) and Denies neck pain Cardiovascular: Cardiovascular: Denies chest pain and Denies dyspnea Respiratory: Respiratory: Denies dyspnea Gastrointestinal: Gastrointestinal: Reports no additional gastrointestinal complaints Genitourinary: Genitourinary: Denies dysuria Musculoskeletal: Musculoskeletal: Denies neck pain Integumentary/Breasts: Skin/Breast: Denies dry skin Neurologic: Reports Normal hearing present, Denies headache(s) and Denies weakness Psychiatric: Psychiatric: Denies anxiety Endocrine: Endocrine: Denies change in body appearance Hematologic/Lymphatic: Hematologic/Lymphatic: Denies easy bleeding Allergic/Immunologic: Allergic/Immunologic: Denies urticaria PMF Past Medical History Medical History (Updated 07/15/21 @ 09:24 by Carlos Eduardo Duong MD) Abnormal gastric folds Aftercare following left shoulder joint replacement surgery Chronic GERD Diverticulosis Erectile dysfunction Essential hypertension Hemorrhoid HLD (hyperlipidemia) Internal hemorrhoid Left shoulder pain LUQ abdominal pain Obesity (BMI 30.0-34.9) YASMANY (obstructive sleep apnea) Pure hypercholesterolemia Status post fall Type 2 diabetes mellitus with hyperglycemia Type 2 diabetes mellitus without complication, without long-term current use of insulin Surgical History Surgical History H/O shoulder surgery this past week at [facility]. History of appendectomy S/P bilateral inguinal herniorrhaphy Family History Family History Mother Patient's mother is , Onset Age: 62 Family history of malignant neoplasm of ovary Hypertension Father Patient's father is in good health Social History Social History (Reviewed 06/04/21 @ 13:44 by CAROLYNE Nagel Social History: The patient tells me that he lives with his . And that she is a durable power state attorney for healthcare. The patient stated that he does continue to smoke but he plans on quitting today. The patient is a full code. Smoking packs per day: 1 Smoking cigarettes per day: 20.0 Years smoked: 50 Smoking pack-years: 50.00 Smoking status: Current every day smoker Tobacco type: cigarettes Second hand tobacco smoke exposure: Yes Alcohol intake: current Drinks per week: 12 Substance use: never Substance use type: does not use Living arrangements: alone Gender identity (if verbalized by the patient): Male Sexual Orientation (if Verbalized by the Patient): Straight or Heterosexual Spiritual care concerns: No Meds Home Medications and Allergies Home Medications Medication Instructions Recorded Confirmed Type sildenafil 100 mg tablet 100 mg PO DAILY PRN #6 tablet 08/10/19 07/03/21 Rx rosuvastatin 10 mg tablet 10 mg PO DAILY #90 tablet 10/31/20 07/03/21 Rx metformin 500 mg tablet,extended 2,000 mg PO DAILY #360 tablet 11/30/20 07/03/21 Rx release 24hr etodolac 400 mg tablet 400 mg PO BID #180 tablet 12/24/20 07/03/21 Rx ferrous sulfate 325 mg (65 mg See Rx Instructions .ROUTE 01/16/21 07/03/21 Rx iron) tablet .COMPLEX #60 tablet pantoprazole 40 mg tablet,delayed 40 mg PO QAM #90 tablet 03/11/21 0
--- NOTE | 2021-07-15 09:40 | SUR.OPER ---
[place]: [id number] [facility]: [id number]
[2021-07-15 09:47] VITALS: BP 83/47; PULSE 54; RESP 11; O2SAT 96
--- NOTE | 2021-07-15 09:47 | W.PM.PROC2 ---
Procedure Note - Detailed Date of Procedure 07/15/21 Pre-op Diagnosis Rectal bleeding, hemorrhoids Post-op Diagnosis Same Procedure Performed IRC of internal hemorrhoids Surgeon Carlos Eduardo Duong MD Findings grade II IH Description of Procedure grade II internal hemorrhoids at 6 o'clock position, no fissure. Anoscope was introduced and then advanced IRC probe, hemorrhoids treated 1.5 seconds x6, no complications
[2021-07-15 09:57] VITALS: BP 101/56; PULSE 56; RESP 13; O2SAT 97
[2021-07-15 10:07] VITALS: BP 120/82; PULSE 59; RESP 14; O2SAT 100
== END 2021-07-15 10:20 | disposition home or self-care (01) ==
PROVIDERS: PCP Family Medicine; Visit Provider Internal Medicine Gastroenterology
PROC: 0DJD8ZZ Inspection of Lower Intestinal Tract, Via Natural or Artificial Opening Endoscopic (ICD-10-PCS; CPT 45378; principal; 2021-07-15 09:45)
PROC: (CPT 46930; 2021-07-15 09:45)
DX: D50.9 Iron deficiency anemia, unspecified (principal); K64.1 Second degree hemorrhoids; K57.30 Diverticulosis of large intestine without perforation or abscess without bleeding; Z79.84 Long term (current) use of oral hypoglycemic drugs; Z79.51 Long term (current) use of inhaled steroids; I10 Essential (primary) hypertension; E78.5 Hyperlipidemia, unspecified; G47.33 Obstructive sleep apnea (adult) (pediatric); E11.9 Type 2 diabetes mellitus without complications; K21.9 Gastro-esophageal reflux disease without esophagitis; E66.9 Obesity, unspecified; Z68.35 Body mass index [BMI] 35.0-35.9, adult; F17.210 Nicotine dependence, cigarettes, uncomplicated
CPT/HCPCS: 46930; 45378; 82948; J2704; J7120

== ENCOUNTER 2021-09-02 11:53 | Outpatient (CLI) | payer MEDICARE, SELFPAY ==
[2021-09-02 12:37] LABS: Basophils Percent Auto 0.2 % (0.2-1.2); Eosinophils Percent Auto 0.2 % (0-4.4); Hematocrit 32.3 % (42.0-52.0); Hemoglobin 10.4 g/dL (14.0-18.0); Immature Granulocyte Absolute 0.04 K/mm3 (0.00-0.031); Immature Granulocyte Percent A 0.9 % (0-0.5); Lymphocytes Absolute Auto 1.77 K/mm3 (0.9-3.2); Lymphocytes Percent Auto 39.3 % (18.3-44.2); Mean Corpuscular HGB Conc 32.2 g/dl (32-36); Mean Corpuscular Hemoglobin 29.5 pg (26-34); Mean Corpuscular Volume 91.5 fl (80-100); Mean Platelet Volume 10.9 fl (7.4-10.4); Monocytes Absolute Auto 0.6 K/mm3 (0.1-0.6); Monocytes Percent Auto 12.2 % (2.6-8.5); Neutrophils Absolute Auto 2.1 K/mm3 (1.3-6.7); Neutrophils Percent Auto 47.2 % (45.5-73.1); Platelet Count Result 155 k/mm3 (150-375); Red Blood Count 3.53 M/mm3 (4.6-6.20); Red Cell Distribution Width 15.2 % (11.5-14.5); White Blood Count 4.5 K/mm3 (4.5-10.0)
[2021-09-02 12:46] LABS: Alanine Aminotransferase 18 U/L (6-50); Albumin Level 4.1 g/dL (3.5-5.1); Alkaline Phosphatase 66 U/L (38-126); Anion Gap 8 mmol/L (8-16); Aspartate Amino Transferase 19 U/L (17-59); Bilirubin,Total 0.8 mg/dL (0.2-1.3); Blood Urea Nitrogen 17 mg/dL (9-20); Calcium 8.2 mg/dL (8.4-10.2); Carbon Dioxide 24 mmol/L (22-30); Chloride 106 mmol/L (98-107); Estimated Glomerular Filt Rate > 60; Glucose 161 mg/dL (65-110); Potassium 4.3 mmol/L (3.4-5.0); Sodium 138 mmol/L (137-145)
== END 2021-09-02 11:54 | disposition home or self-care (01) ==
LOC: ANHLAB 12:05
PROVIDERS: PCP Family Medicine; Visit Provider Family Medicine
DX: M54.9 Dorsalgia, unspecified (principal); R10.9 Unspecified abdominal pain; R53.83 Other fatigue
CPT/HCPCS: 36415; 80053; 85025

== ENCOUNTER 2022-08-07 12:07 | Emergency (ER) | payer MEDICARE, SELFPAY ==
--- NOTE | 2022-08-07 12:09 | ED.WOUNDLAC ---
HPI - Wound/Laceration General Chief Complaint: Wound/Laceration Stated Complaint: Cut Lt Hand Time Seen by Provider: 08/07/22 12:50 Source: patient and RN notes reviewed Mode of arrival: ambulatory Limitations: no limitations History of Present Illness HPI narrative: 72-year-old male presents concern for laceration to his left hand. Reports prior to arrival he was cutting some plastic with a paring knife and cut his hand. He denies decreased sensation, strength, range of motion hand or any digits. He is not sure when his last tetanus shot was Related Data Allergies Allergy/AdvReac Type Severity Reaction Status Date / Time No Known Allergies Allergy Unknown Verified 08/07/22 12:24 Review of Systems Review of Systems: CONSTITUTIONAL: Denies malaise, chills, sweats, or fever. SKIN: Reports laceration on the left hand MUSCULOSKELETAL: Denies muscle skeletal pain NEUROLOGIC: Denies numbness, weakness All systems reviewed & are unremarkable except as noted in HPI and below PMFSH Past Medical History Medical History Abnormal gastric folds Aftercare following left shoulder joint replacement surgery Chronic GERD Diverticulosis Erectile dysfunction Essential hypertension Hemorrhoid HLD (hyperlipidemia) Internal hemorrhoid Left shoulder pain LUQ abdominal pain Obesity (BMI 30.0-34.9) YASMANY (obstructive sleep apnea) Pure hypercholesterolemia Status post fall Type 2 diabetes mellitus with hyperglycemia Type 2 diabetes mellitus without complication, without long-term current use of insulin Surgical History Surgical History H/O shoulder surgery this past week at [facility]. History of appendectomy S/P bilateral inguinal herniorrhaphy Family History Family History Mother Patient's mother is , Onset Age: 62 Family history of malignant neoplasm of ovary Hypertension Father Patient's father is in good health Social History Social History Social History: The patient tells me that he lives with his . 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 The patient stated that he does continue to smoke but he plans on quitting today. The patient is a full code. Smoking packs per day: 1 Smoking cigarettes per day: 20.0 Years smoked: 50 Smoking pack-years: 50.00 Smoking status: Current every day smoker Tobacco type: cigarettes Second hand tobacco smoke exposure: Yes Alcohol intake: current Drinks per week: 12 Substance use: never Substance use type: does not use Living arrangements: alone Occupation/Education: retired Gender identity (if verbalized by the patient): Male Sexual Orientation (if Verbalized by the Patient): Straight or Heterosexual Spiritual care concerns: No Comments At time of signature, agree with nursing past medical, surgical, social and family history. There is no relevant family history pertinent to the presenting complaint Exam Narrative: GENERAL: Well-appearing, well-nourished, and in no acute distress. HEAD: Normocephalic EYES: PERRLA, conjunctivae clear NECK: Supple. CHEST: Speaks in full sentences. No respiratory distress. HEART: Regular rate and rhythm. Normal and equal peripheral pulses. EXTREMITIES: Left hand and digits of hand have normal strength and sensation. 5/5 strength with digit flexion, extension. Range of motion normal. Normal digital cascade with flexion of fingers, median, ulnar and radial nerve intact. Normal sensation of each side of finger. Can perform 'okay' sign, 'cross over finger test of index and middle fingers' and 'thumbs up' sign. No scissoring. Normal thumb opposition. Good capillary refill and radial pulse. Distal capillary refill less than 3 seconds. Patient is right/left hand domina
[2022-08-07 12:23] VITALS: BP 146/64; PULSE 83; RESP 18; TEMP 36.1; O2SAT 98
[2022-08-07] MEDS: LIDOCAINE HCL 1% LOCAL INJ 2 ML AMPUL 6 ML INFILTRATE (12:47)
[2022-08-07] MEDS: TETANUS,DIPHTHERIA,AC PERTUSSIS ADULT (0.5 ML) BOOSTRIX IM (13:20)
== END 2022-08-07 13:30 | disposition home or self-care (01) ==
PROVIDERS: Emergency Provider Nurse Practitioner; PCP Family Medicine
DX: S61.412A Laceration without foreign body of left hand, initial encounter (principal); W26.0XXA Contact with knife, initial encounter; Z23 Encounter for immunization; F17.210 Nicotine dependence, cigarettes, uncomplicated; K21.9 Gastro-esophageal reflux disease without esophagitis; I10 Essential (primary) hypertension; E78.5 Hyperlipidemia, unspecified; E78.00 Pure hypercholesterolemia, unspecified; E11.9 Type 2 diabetes mellitus without complications
CPT/HCPCS: 12002; 90471; 90715; 99212; G0463

== ENCOUNTER 2022-09-09 10:01 | Outpatient (CLI) | payer MEDICARE, SELFPAY ==
--- NOTE | ~2022-09-09 | CT_ITS ---
CT Scan of the Chest without Contrast: Clinical Indication: Lung cancer screening, personal history of nicotine dependence Technique: Contiguous sections were acquired throughout the chest without intravenous contrast. Dose reduction technique was used on this scan by utilizing automated exposure control and iterative recon struction technique. The dose-length product (DLP) was 258.37 mGy-cm. COMPARISON: 05/16/2021, 01/19/2020 Findings: There is no evidence of any significant mediastinal, hilar or axillary lymphadenopathy. The mediastin al soft tissues appear normal. There is no evidence of pleural or pericardial effusion. Stable calcified right upper lobe granuloma noted. Images through the upper abdomen reveal 2 small nonobstructing right renal stone. Impression: Lung RADS 2: Benign appearance. 12 month follow-up screening CT advised. Reviewed, dictated and finalized at [facility]. Impression: Lung RADS 2: Benign appearance. 12 month follow-up screening CT advised.
== END 2022-09-09 10:02 | disposition home or self-care (01) ==
PROVIDERS: PCP Family Medicine; Visit Provider Physician Assistant
DX: Z12.2 Encounter for screening for malignant neoplasm of respiratory organs (principal); F17.210 Nicotine dependence, cigarettes, uncomplicated
CPT/HCPCS: 71271

== ENCOUNTER 2022-09-29 02:31 | Day surgery (SDC) | payer MEDICARE, SELFPAY ==
[2022-09-19 12:47] VITALS: BMI 33.5
[2022-09-29 09:28] VITALS: BP 118/72; PULSE 78; RESP 16; TEMP 36.2; O2SAT 78; BMI 32.7
[2022-09-29 09:43] LABS: Glucose Point of Care 109 mg/dl (65-105)
[2022-09-29] MEDS: LACTATED RINGERS 1,000 ML 150 ML IV CONT (09:53)
--- NOTE | 2022-09-29 10:23 | WPDHPUPDATE1 ---
History and Physical Update Update Date/Time: 09/29/22 10:23 History and Physical has been reviewed, including an updated exam of the patient. There are NO changes in the patient's condition. Risks, benefits, and alternatives have been discussed and questions answered. Patient agrees to proceed with procedure.
--- NOTE | 2022-09-29 10:28 | WPDANESEPPF ---
Anes - Initial Pre Proc Eval Procedure: Operation Date: 09/29/22 11:00 Proposed Procedures p Flexible Sigmoidoscopy - Carlos Eduardo Duong MD s [facility] Hemorrhoid Treatment - Carlos Eduardo Duong MD Date/Time: 09/29/22 10:28 Surgeon: Carlos Eduardo Duong MD Pre Op Diagnosis: hemorrhage of anus/rectum,hemorrhoids Patient Data Age: 72 Gender: M Height: 1.73 m Weight: 97.6 kg Last Vital Signs Temp 97.2 F L 09/29/22 09:28 Pulse 78 09/29/22 09:28 Resp 16 09/29/22 09:28 BP 118/72 09/29/22 09:28 Pulse Ox 78 L 09/29/22 09:28 O2 Del Method Room Air 09/29/22 09:28 Allergies Allergy/AdvReac Type Severity Reaction Status Date / Time No Known Allergies Allergy Unknown Verified 09/24/22 09:42 Home Medications Medication Instructions Recorded Confirmed Type albuterol sulfate 90 mcg/actuation 1 - 2 puff inhalation Q4H PRN 05/13/21 09/24/22 Rx aerosol inhaler (ProAir HFA) shortness of breath or wheezing #6.7 grams rosuvastatin 10 mg tablet 10 mg PO DAILY #90 tabs 11/14/21 09/24/22 Rx metformin 500 mg tablet,extended See Rx Instructions .Route 12/27/21 09/24/22 Rx release 24 hr .COMPLEX #360 tabs glipizide 10 mg tablet See Rx Instructions .Route 02/04/22 09/24/22 Rx .COMPLEX #180 tabs fluoxetine 40 mg capsule See Rx Instructions .Route 04/02/22 09/24/22 Rx .COMPLEX #90 caps etodolac 400 mg tablet 400 mg PO BID #180 tabs 04/24/22 09/24/22 Rx ferrous sulfate 325 mg (65 mg See Rx Instructions .Route 04/24/22 09/24/22 Rx iron) tablet (FeroSul) .COMPLEX #180 tabs pantoprazole 40 mg tablet,delayed 40 mg PO QAM #90 tabs 07/15/22 09/24/22 Rx release dulaglutide 1.5 mg/0.5 mL 1.5 mg (0.5 mL) subcut WEEKLY #2 mL 08/13/22 09/19/22 Rx subcutaneous pen injector (Trulicity) amlodipine 5 mg tablet 5 mg PO DAILY #90 tabs 08/29/22 09/19/22 Rx nebivolol 20 mg tablet (Bystolic) 20 mg PO DAILY #90 tabs 08/29/22 09/19/22 Rx olmesartan 40 mg tablet 40 mg PO DAILY #90 tabs 08/29/22 09/19/22 Rx fluoxetine 40 mg capsule (Prozac) 40 mg PO DAILY 09/19/22 09/19/22 History vitamin B complex (B 1 tablet PO DAILY 09/19/22 09/19/22 History Complex-Vitamin B12 tablet) Laboratory Tests 09/29/22 09:40 POC Capillary Glucose 109 H mg/dl (65-105) Patient hx anesthesia problems: none Family hx anesthesia problems: none Results Review: All pre-operative results and documents have been reviewed as part of the pre-operative evaluation. [facility] Past Medical History Medical History (Updated 09/05/22 @ 12:40 by Misty James APRN) Abnormal gastric folds Aftercare following left shoulder joint replacement surgery AVM (arteriovenous malformation) of small bowel, acquired Chronic GERD Diverticulosis Erectile dysfunction Essential hypertension Hemorrhoid HLD (hyperlipidemia) Internal hemorrhoid Left shoulder pain LUQ abdominal pain Obesity (BMI 30.0-34.9) YASMANY (obstructive sleep apnea) Pure hypercholesterolemia Rectal bleeding Status post fall Type 2 diabetes mellitus with hyperglycemia Type 2 diabetes mellitus without complication, without long-term current use of insulin Surgical History Surgical History H/O shoulder surgery this past week at [facility]. History of appendectomy S/P bilateral inguinal herniorrhaphy Family History Family History Mother Patient's mother is , Onset Age: 62 Family history of malignant neoplasm of ovary Hypertension Father Patient's father is in good health Social History Social History Social History: The patient tells me that he lives with his . And that she is a durable power bird cage assembler for healthcare. The patient stated that he does continue to smoke but he plans on quitting today. The patient is a full code. Smoking packs
--- NOTE | 2022-09-29 10:43 | W.PM.PROC2 ---
Procedure Note - Detailed Date of Procedure 09/29/22 Pre-op Diagnosis hemorrhage of anus/rectum,hemorrhoids Post-op Diagnosis Same Procedure Performed irc of internal hemorrhoids Surgeon Carlos Eduardo Duong MD Anesthesia MAC (also had sigmoidoscopy) Description of Procedure found grade II internal hemorrhoids, non-bleeding, no fissure, no lesions (using anoscope), then hemorrhoids treated with IRC probe at 1.5 seconds x6
[2022-09-29 10:46] VITALS: BP 103/51; PULSE 70; RESP 19; O2SAT 97
[2022-09-29 10:56] VITALS: BP 100/54; PULSE 69; RESP 16; O2SAT 97
[2022-09-29 11:05] VITALS: BP 106/58; PULSE 70; RESP 16; O2SAT 97
== END 2022-09-29 11:13 | disposition home or self-care (01) ==
PROVIDERS: PCP Family Medicine; Visit Provider Internal Medicine Gastroenterology
PROC: 0DJD8ZZ Inspection of Lower Intestinal Tract, Via Natural or Artificial Opening Endoscopic (ICD-10-PCS; CPT 45330; principal; 2022-09-29 11:00)
PROC: (CPT 46930; 2022-09-29 11:00)
DX: K92.1 Melena (principal); K57.30 Diverticulosis of large intestine without perforation or abscess without bleeding; K64.1 Second degree hemorrhoids; K21.9 Gastro-esophageal reflux disease without esophagitis; I10 Essential (primary) hypertension; E66.9 Obesity, unspecified; E78.00 Pure hypercholesterolemia, unspecified; E11.9 Type 2 diabetes mellitus without complications; F17.210 Nicotine dependence, cigarettes, uncomplicated; Z68.32 Body mass index [BMI] 32.0-32.9, adult; Z79.84 Long term (current) use of oral hypoglycemic drugs; Z79.51 Long term (current) use of inhaled steroids
CPT/HCPCS: 45330; 46930; 82948; J2704; J7120

== ENCOUNTER 2022-12-19 14:15 | Outpatient (CLI) | payer MEDICARE, SELFPAY ==
--- NOTE | ~2022-12-19 | US_ITS ---
EXAMINATION: US carotid duplex BI DATE: 12/19/2022 14:44 INDICATION: Left carotid bruit. Dizziness and giddiness TECHNIQUE: Grayscale, color Doppler, and pulsed Doppler images of the cervical carotid arteries were obtained. The degree of vessel stenosis is placed in one of the following categories: normal, <50%, 5 0-69%, >=70% but less than near-occlusion, near-occlusion, or total occlusion. Note that percent sten osis relative to normal distal artery lumen diameter is indirectly measured from velocity measurement s as described by Sharath, et al. Radiology 2003; 229:340-346. COMPARISON: None. FINDINGS: RIGHT: The right common carotid artery (CCA) peak systolic velocity (PSV) is 231 cm/s. The right internal ca rotid artery (ICA) PSV is 106 cm/s. The right ICA end-diastolic velocity (EDV) is 29 cm/s. The right ICA/CCA PSV ratio is 0.5. Grayscale and color Doppler images yield an estimate of <50% diameter reduc tion from plaque in the ICA. The external carotid artery (ECA) PSV is 111 cm/s. There is antegrade fl ow in the right vertebral artery. LEFT: The left CCA PSV is 74 cm/s. The left ICA PSV is 118 cm/s. The left ICA EDV is 46 cm/s. The left ICA/ CCA PSV ratio is 1.6. Grayscale and color Doppler images yield an estimate of <50% diameter reduction from plaque in the ICA. The ECA PSV is 234 cm/s. There is antegrade flow in the left vertebral arter y. IMPRESSION: 1. <50% stenosis in the right internal carotid artery. 2. <50% stenosis in the left internal carotid artery. Reviewed, dictated and finalized at location A.
== END 2022-12-19 14:16 | disposition home or self-care (01) ==
PROVIDERS: PCP Family Medicine; Visit Provider Family Medicine
DX: R09.89 Other specified symptoms and signs involving the circulatory and respiratory systems (principal); R42 Dizziness and giddiness; I65.23 Occlusion and stenosis of bilateral carotid arteries
CPT/HCPCS: 93880

== ENCOUNTER 2023-01-06 10:42 | Outpatient (CLI) | payer MEDICARE, SELFPAY ==
[2023-01-06 11:06] LABS: Basophils Percent Auto 0.2 % (0.2-1.2); Eosinophils Percent Auto 0.2 % (0-4.4); Hematocrit 32.4 % (42.0-52.0); Hemoglobin 10.2 g/dL (14.0-18.0); Immature Granulocyte Absolute 0.05 K/mm3 (0.00-0.031); Lymphocytes Absolute Auto 1.75 K/mm3 (0.9-3.2); Lymphocytes Percent Auto 34.4 % (18.3-44.2); Mean Corpuscular HGB Conc 31.5 g/dl (32-36); Mean Platelet Volume 10.7 fl (7.4-10.4); Monocytes Absolute Auto 0.7 K/mm3 (0.1-0.6); Monocytes Percent Auto 13.4 % (2.6-8.5); Neutrophils Absolute Auto 2.6 K/mm3 (1.3-6.7); Neutrophils Percent Auto 50.8 % (45.5-73.1); Platelet Count Result 161 k/mm3 (150-375); Red Blood Count 3.52 M/mm3 (4.6-6.20); Red Cell Distribution Width 15.3 % (11.5-14.5); White Blood Count 5.1 K/mm3 (4.5-10.0)
[2023-01-06 11:42] LABS: Alanine Aminotransferase 22 U/L (6-50); Albumin Level 4.4 g/dL (3.5-5.1); Alkaline Phosphatase 70 U/L (38-126); Anion Gap 9 mmol/L (8-16); Aspartate Amino Transferase 23 U/L (17-59); Blood Urea Nitrogen 17 mg/dL (9-20); Calcium 8.9 mg/dL (8.4-10.2); Carbon Dioxide 25 mmol/L (22-30); Chloride 106 mmol/L (98-107); Estimated Glomerular Filt Rate > 60; Glucose 184 mg/dL (65-110); Potassium 3.9 mmol/L (3.4-5.0); Sodium 140 mmol/L (137-145)
[2023-01-06 17:01] LABS: Iron 78 ug/dL (49-181)
[2023-01-06 17:10] LABS: Percent Iron Saturation 22 % (20-50)
== END 2023-01-06 10:43 | disposition home or self-care (01) ==
PROVIDERS: PCP Family Medicine; Visit Provider Internal Medicine Hematology & Oncology
DX: D64.9 Anemia, unspecified (principal)
CPT/HCPCS: 36415; 80053; 82607; 82728; 82746; 83540; 83550; 85025

== ENCOUNTER 2023-08-04 08:57 | Outpatient (CLI) | payer MEDICARE, SELFPAY ==
--- NOTE | ~2023-08-04 | XR_ITS ---
EXAMINATION: XR chest 2V DATE: 08/04/2023 09:22 INDICATION: Cough. Posterior chest pain. TECHNIQUE: Frontal and lateral views of the chest were obtained. COMPARISON: Chest 2 views 12/13/2019 FINDINGS: There is no pneumonia, pleural effusion, or pneumothorax. The heart size is normal. There i s a total left shoulder arthroplasty. There is mild chronic anterior wedging of multiple thoracic ricki tebral bodies. IMPRESSION: 1. No acute cardiopulmonary disease. Reviewed, dictated and finalized at location A.
== END 2023-08-04 08:58 | disposition home or self-care (01) ==
LOC: ANHIMG 09:02
PROVIDERS: PCP Family Medicine; Visit Provider Physician Assistant
DX: R05.9 Cough, unspecified (principal)
CPT/HCPCS: 36415; 71046; 80048; 82607; 82728; 82746; 83540; 83550; 85025; 85055

== ENCOUNTER 2023-09-24 06:51 | Outpatient (CLI) | payer MEDICARE, SELFPAY ==
--- NOTE | ~2023-09-24 | CT_ITS ---
CT Scan of the Chest without Contrast: Clinical Indication: Lung cancer screening, nicotine dependence Technique: Contiguous sections were acquired throughout the chest without intravenous contrast. Dose reduction technique was used on this scan by utilizing automated exposure control and iterative recon struction technique. The dose-length product (DLP) was 282.88 mGy-cm. COMPARISON: 09/09/2022 Findings: There is no evidence of any significant mediastinal, hilar or axillary lymphadenopathy. Coronary keyla ry calcifications are present. There is no evidence of pleural or pericardial effusion. Calcified right upper lobe granuloma noted. Images through the upper abdomen reveal 2 mm nonobstructing left renal stone. Impression: Lung RADS 2: Benign appearance. 12 month follow-up screening CT advised. Reviewed, dictated and finalized at location . Impression: Lung RADS 2: Benign appearance. 12 month follow-up screening CT advised.
== END 2023-09-24 06:52 | disposition home or self-care (01) ==
PROVIDERS: PCP Family Medicine; Visit Provider Physician Assistant
DX: Z12.2 Encounter for screening for malignant neoplasm of respiratory organs (principal); F17.210 Nicotine dependence, cigarettes, uncomplicated
CPT/HCPCS: 71271

== ENCOUNTER 2024-09-26 10:11 | Outpatient (CLI) | payer MEDICARE, SELFPAY ==
--- NOTE | ~2024-09-26 | CT_ITS ---
CT Scan of the Chest without Contrast: Clinical Indication: Lung cancer screening, nicotine dependence Technique: Contiguous sections were acquired throughout the chest without intravenous contrast. Dose reduction technique was used on this scan by utilizing automated exposure control and iterative recon struction technique. The dose-length product (DLP) was 180.00 mGy-cm. COMPARISON: 09/24/2023 Findings: There is no evidence of any significant mediastinal, hilar or axillary lymphadenopathy. Coronary keyla ry calcifications are present. There is no evidence of pleural or pericardial effusion. Calcified right upper lobe granulomas are present. Images through the upper abdomen reveal no abnormalities. Impression: Lung RADS 2: Benign appearance. 12 month follow-up screening CT advised. Reviewed, dictated and finalized at location . Impression: Lung RADS 2: Benign appearance. 12 month follow-up screening CT advised.
== END 2024-09-26 10:12 | disposition home or self-care (01) ==
LOC: MICIMG 10:12
PROVIDERS: PCP Family Medicine; Visit Provider Physician Assistant
DX: Z12.2 Encounter for screening for malignant neoplasm of respiratory organs (principal); Z87.891 Personal history of nicotine dependence
CPT/HCPCS: 71271

== ENCOUNTER 2025-02-20 00:40 | Day surgery (SDC) | payer MEDICARE, SELFPAY ==
[2025-01-31 09:17] VITALS: BMI 31.8
--- OUTSIDE RECORDS SUMMARY | 2025-02-20 00:42 | XMS_ITS | Clinical Summary ---
Author Organization [facility] Formerly [facility] Address [address] [place] [address] Care Team Providers Care Preparer Making Department Name Role Phone Luciano Henson MD Primary Care Provider [phone] Allergies No known active allergies Medications triazolam (HALCION) 0.25 mg tablet triazolam 0.25 mg tablet Active rosuvastatin (CRESTOR) 10 mg tablet rosuvastatin 10 mg tablet Active pantoprazole (PROTONIX) 40 mg Tablet, Delayed Release (E.C.) pantoprazole 40 mg tablet,delayed release Active nebivoloL (BYSTOLIC) 20 mg Tablet Bystolic 20 mg tablet Active metFORMIN (GLUCOPHAGE XR) 500 mg Extended Release 24 hour tablet metformin ER 500 mg tablet,extended release 24 hr Active linaGLIPtin (TRADJENTA) 5 mg Tablet Tradjenta 5 mg tablet Active glipiZIDE (GLUCOTROL) 5 mg tablet TK 1 T PO BID 0 Active FLUoxetine (PROzac) 40 mg capsule fluoxetine 40 mg capsule Active flu vaccine trivalent MF59 (65 yr+)(PF)(FLUAD ) 45 mcg/0.5 mL IM syringe Fluad 65yr up(PF)45 mcg(15 mcgx3)/0.5 mL intramuscular syringe ADM 0.5ML IM UTD Active ferrous sulfate 325 mg (65 mg iron) tablet TK 1 T PO BID 0 Active etodolac (LODINE) 400 mg tablet etodolac 400 mg tablet Active amLODIPine-olm esartan 5-40 mg Tablet TK 1 T PO D 0 Active albuterol sulfate 90 mcg/Actuation inhaler INHALE 1 TO 2 PUFFS BY MOUTH EVERY 4 HOURS NEEDED FOR SHORTNESS OF BREATH OR WHEEZING 2 Active azithromycin (ZITHROMAX) 250 mg tablet TAKE 2 TABLETS BY MOUTH FOR 1 DAY THEN TAKE 1 TABLET BY MOUTH DAILY FOR 4 DAYS 2 Active olmesartan-amL ODIPine-HCTZ (TRIBENZOR) 40-10-12.5 mg tablet Take 1 Tablet by mouth daily. 2 Active Trulicity 1.5 mg/0.5 mL injection 3 Active Active Problems Problem Noted Date Diagnosed Date Low vitamin B12 level 01/06/2020 DM (diabetes mellitus) 01/06/2020 HTN (hypertension), benign 01/06/2020 Gastritis 01/06/2020 Hyperlipidemia 01/06/2020 Iron deficiency anemia 12/29/2019 Encounters Date Type Department Care Team Description 02/07/2025 10:00 AM AGRICULTURAL PRODUCE COMMISSION AGENT Office Visit [facility] Oncology and Hematology [facility] [address] [place] [phone] Martell Berman MD Chronic anemia (Primary Dx) 02/03/2025 Orders Only [facility] Oncology and Hematology - [place] [address] [place] [id number] Martell Berman MD 02/02/2025 Orders Only [facility] Oncology and Hematology - [place] [address] [place] [address] Martell Berman MD 01/31/2025 External Device Data [facility] ABSTRACTION Provider, Abstract 12/06/2024 10:00 AM CDT Office Visit [facility] Oncology and Hematology - [place] [address] [place] [address] Martell Berman MD Chronic anemia (Primary Dx) 12/06/2024 Orders Only [facility] Oncology and Hematology - [place] [address] [place] [address] Martell Berman MD from Last 3 Months Social History Tobacco Use Types Packs/Day Years Used Date Smoking Tobacco: Every Day Cigarettes 1 25 Smokeless Tobacco: Never Tobacco Cessation:Ready to Q uit: Not Asked; Counseling Given: Not Answered Alcohol Use Standard Drinks/Week Comments Yes 0 (1 standard drink = 0.6 oz pur e alcohol) occasionlly Sex and Gender Information Value Date Recorded Sex Assigned at Not on file Legal Sex Male 8:42 AM CDT Gender Identity Not on file Sexual Orientation Not on file Last Filed Vital Signs Vital Sign Reading Time Taken Comments Blood Pressure 131/62 02/07/2025 9:53 AM [employer]ODU[employer] COMM[employer] AGENT Pulse 94 02/07/2025 9:53 AM [employer]URAL [employer]ODUCE COMM[employer]ION AGENT Temperature 36.3 C (97.3 F) 02/07/2025 9:53 AM [employer]URAL [employer]ODUCE COMM[employer]ION AGENT Respiratory Rate 16 02/07/2025 9:53 AM [employer]ODUCE COMM[employer]ION AGENT Oxygen Saturation 98% 02/07/2025 9:53 AM [employer]ODU[employer] COMM[employer]ION AGENT Inhaled Oxygen Concentration - - Weight 97.4 kg (214 lb 12.8 oz) 02/07/2025 9:53 AM [employer]URAL [employer]ODUCE COMM[employer]ION AGENT Height 170.2 cm (5' 7) 11/20/2021 9:29 AM CDT Body Mass Index 33.64 11/20/2021 9:29 AM CDT Plan of Treatment Upcoming Encounters Date Type Department Care Team (Late st Contact Info) Description 03/20/2025 9:45 AM [employer]ODU[employer] AGENT Office Visit [facility] Oncology and Hematology - [place] [address] [facility] [address] [place] [address] Martell Berman MD [address] [place] [address] Health Maintenance Due Date Last Done Comments DIABETES ANNUAL FOOT EXAM 1970 DIABETES MICROALBUMIN ANNUAL SCREEN 1970 LDL CHOLESTEROL ANNUAL 1970 DTAP/TDAP/TD VACCINES (1 - Tdap) 06/01/1971 PNEUMOCOCCAL VACCINE 50+ YEA RS (1 of 2 - PCV) 06/01/1971 FIT-DNA Q 3 years 1997 FIT/FOBT Q 1 year 1997 ZOSTER VACCINE (1 of 2) 2002 Abdominal Aortic Aneurysm (A AA) Screening 2017 Lung Cancer Screening 01/18/2021 01/19/2020 INFLUENZA VACCINE (#1) 2024 DIABETES HBA1C Q 6 MONTHS 02/05/20252024, 03/28/2024, 11/26/2023, Additional history exists DIABETES ANNUAL RETINAL EXAM 06/08/2025 06/08/2024 RSV VACCINE (60+ or ) (1 - 1-dose 75+ series) 06/01/2027 Flex Sig/CT Colonography Q 5 years 09/30/20272022 COLORECTAL SCREENING 09/29/2032 09/29/2022, 07/15/2021, 05/16/2019 Colorectal Cancer Screening 09/29/2032 Procedures Procedure Name Priority Date/Time Associated Diagnosis Comments CBC WITH AUTODIFFERENTIAL Routine 2024 1:15 PM [employer]ENT VITAMIN B12 LEVEL Routine 02/02/2025 11: 49 AM [employer] AGENT IRON, TIBC, AND PERCENT SATURATION Routine 02/02/2025 8:00 AM [employer]ODU[employer] AGENT BASIC METABOLIC PANEL Routine 12/02/2024 7:49 AM CDT IRON, TIBC, AND PERCENT SATURATION Routine 12/02/2024 7:[address] LUNG SCREENING (LDCT BASELINE OR ANNUAL) Routine 01/19/2020 Encounter for screening for malignant neoplasm of lung in current smoker with 30 pack year history or greater from Last 3 Months or Most Recently Relevant to Health Maintenance Results * CBC WITH AUTODIFFERENTIAL (02/02/2025 1:15 PM A[employer] AGENT) Blood us Martell Berman MD HEMATOLOGY ORDERABLES Final Res ult * VITAMIN B12 LEVEL (02/02/2025 11:49 AM A[employer]ODUCE COMMISSION AGENT) Blood us Martell Berman MD CHEMISTRY ORDERABLES Final Resu lt * IRON, TIBC, AND PERCENT SATURATION (02/02/2025 8:00 AM A[employer]ICULTURAL PRODUCE COMMISSION AGENT) Only the most recent of2 resultswithin the time period is included. Blood us Martell Berman MD CHEMISTRY ORDERABLES Final Resu lt * BASIC METABOLIC PANEL (12/02/2024 7:49 AM CDT) Blood us Martell Berman MD CHEMISTRY ORDERABLES Final Resu lt * CT LUNG SCREENING (LDCT BASELINE OR ANNUAL) (01/19/2020) Anatomical Region Laterality Modality Chest Computed Tomogra phy Yanci Epps ANP CT ORDERABLES Fin al Result from Last 3 Months or Most Recently Relevant to Health Maintenance Insurance MEDICARE PART A AND B BCBS SUPP Care Teams Preparer Making Department Relationship Specialty Start Date End Date Luciano Henson MD [address] [facility] [address] [place] [address] PCP - General Family Practice 12/20/19
--- OUTSIDE RECORDS SUMMARY | 2025-02-20 00:42 | XMS_ITS | Clinical Summary ---
Author Organization [facility] Address [address] [place] [address] Care Team Providers Care Cloth Hand Name Role Phone Luciano Henson MD Primary Care Provider Allergies No known active allergies Medications metFORMIN (GLUCOPHAGE) 1,000 mg tablet Take 2,000 mg by mouth daily before dinner Active glipiZIDE (GLUCOTROL) 10 mg tabletIndicatio ns:type 2 diabetes mellitus Take 10 mg by mouth 2 (two) times a day Active rosuvastatin (CRESTOR) 10 mg tablet Take 10 mg by mouth every morning Active amlodipine-olme sartan (CHARLIE) 10-40 mg per tabletIndicatio ns:hypertension Take 1 tablet by mouth every morning Active nebivoloL (BYSTOLIC) 20 mg tablet Take 20 mg by mouth every morning Active pantoprazole DR (PROTONIX) 40 mg EC tablet Take 40 mg by mouth every morning Active FLUoxetine (PROzac) 40 mg capsuleIndicati ons:depression Take 40 mg by mouth every morning Active linaGLIPtin (TRADJENTA) 5 mg tabletIndicatio ns:type 2 diabetes mellitus 5 mg every morning Active acetaminophen (TYLENOL) 325 mg tablet Take 2 tablets (650 mg total) by mouth every 6 (six) hours as needed for pain 100 tablet 1 0 Active aspirin 325 mg enteric coated tablet Take 1 tablet (325 mg total) by mouth 2 (two) times a day 28 tablet 0 Active docusate sodium (COLACE) 100 mg capsuleIndicati ons:constipatio n Take 1 capsule (100 mg total) by mouth 2 (two) times a day HOLD if having diarrhea or loose stools 30 capsule 1 0 Active oxyCODONE (ROXICODONE) 5 mg immediate release tabletIndicatio ns:Pain Take 1-2 tablets (5-10 mg total) by mouth every 4 (four) hours as needed for pain 40 tablet 0 Active cyanocobalamin (Vitamin B-12) 1,000 mcg tablet TK 1 T PO D 0 Active doxycycline hyclate 100 mg capsule TK 1 C PO BID 0 Active ferrous sulfate 325 mg (65 mg of elemental iron) tablet TK 2 TS PO QOD 0 Active levoFLOXacin (LEVAQUIN) 750 mg tablet TK 1 T PO D 0 Active fluconazole (DIFLUCAN) 200 mg tablet fluconazole 200 mg tablet Active sildenafiL (VIAGRA) 100 mg tablet sildenafil 100 mg tablet Active amoxicillin 500 mg capsule TK 4 CS PO 1 HOUR BEFORE DENTAL APPOINTMENT 0 Active etodolac (LODINE) 400 mg tablet 0 Active amlodipine-olme sartan (CHARLIE) 5-40 mg per tablet Take 1 tablet by mouth daily 1 Active glipiZIDE (GLUCOTROL) 5 mg tablet 1 Active Active Problems Problem Noted Date Diagnosed Date DM (diabetes mellitus) 01/06/2020 Low vitamin B12 level 01/06/2020 Gastritis 01/06/2020 HTN (hypertension), benign 01/06/2020 Hyperlipidemia 01/06/2020 Iron deficiency anemia 12/29/2019 Nontraumatic complete tear of left rotator cuff 09/28/2019 Overview (09/28/2019): Added automatically from request for surgery [id number] Increased thickness of nail 09/15/2019 Abdominal pain 09/15/2019 Blurring of visual image 09/15/2019 Bronchitis 09/15/2019 Concussion with no loss of consciousness 020 Disorder of bladder 09/15/2019 Disorder of shoulder 09/15/2019 Essential hypertension 09/15/2019 Hip pain 09/15/2019 Hyperlipidemia 09/15/2019 Left upper quadrant pain 09/15/2019 Lesion of lip 09/15/2019 Postconcussion syndrome 09/15/2019 Transient ischemic attack 09/15/2019 Type 2 diabetes mellitus without complication Uncontrolled type 2 diabetes mellitus 09/15/2019 Diverticulosis 08/19/2019 Overview (08/19/2019): Added automatically from request for surgery [id number] Prostatism 07/23/2016 Surgical History Surgery Date Site/Laterality Comments CATARACT EXTRACTION, BILATERAL 03/16/2009 - 03/15/2010 APPENDECTOMY HERNIA REPAIR congenital and repaired as child Medical History Medical History Date Comments GERD (gastroesophageal reflux disease) Dysphagia Pancreatitis Hypertension Type 2 diabetes mellitus Kidney stone Depression Cataract Social History Tobacco Use Types Packs/Day Years Used Date Smoking Tobacco: Every Day Cigarettes 1 54.9 Started: 1968 Smokeless Tobacco: Never Alcohol Use Standard Drinks/Week Comments Yes 0 (1 standard drink = 0.6 oz pur e alcohol) 6-8 beers a week Sex and Gender Information Value Date Recorded Sex Assigned at Not on file 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 Gender Identity Not on file Sexual Orientation Not on file Last Filed Vital Signs Vital Sign Reading Time Taken Comments Blood Pressure 138/61 10/14/2019 11:06 AM CDT Pulse 68 10/14/2019 11:16 AM CDT per telemetry Temperature 36.6 C (97.9 F) 10/14/2019 11:06 AM CDT Respiratory Rate 18 10/14/2019 11:0 6 AM CDT Oxygen Saturation 94% 10/14/2019 11: 06 AM CDT Inhaled Oxygen Concentration - - Weight 99.8 kg (220 lb) 10/13/2019 2:00 PM CDT Height 172.7 cm (5' 8) 10/13/2019 2:00 PM CDT Body Mass Index 33.45 10/13/2019 2:00 PM CDT Plan of Treatment Not on file Medical Devices Implanted Type Area Deputy Building Guard Device Identifier Shelf Expiration Date Model / Serial / Lot [employer] [id number] Rsp 30mm Shoulder Baseplate Glenoid P2 Sterile Latex Free - S0 - [id number] Implanted:Qty: 1 on 10/13/2019 by Giuseppe Mariano MD at [facility] Screw [employer] 11/02/2024 508-32-20 4 0 / [id number] Screw Bone 5mm 18mm Rsp Shldr Lock Glenoid Bsplt - [id number] Implanted:Qty: 1 on 10/13/2019 by Giuseppe Mariano MD at [facility] Left: Shoulder [employer] [id number] 08/31/202511 8 / / [id number] Head Glenoid 36mm Rsp Neutral Retain Screw - [id number] Implanted:Qty: 1 on 10/13/2019 by Giuseppe Mariano MD at [facility] Left: Shoulder [employer] [id number] 07/05/2025 508-36-10 1 / / [id number] [facility] 506-03-114 - [id number] Implanted:Qty: 1 on 10/13/2019 by Giuseppe Mariano MD at [facility] Left: Shoulder [employer] [id number] 09/05/202511 4 / / [id number] Screw Bone 5mm 30mm Rsp Shldr Lock Glenoid Bsplt - [id number] Implanted:Qty: 1 on 10/13/2019 by Giuseppe Mariano MD at [facility] Left: Shoulder [employer] [id number] 09/01/202513 0 / / [id number] [employer] 506-03-138 Rsp 5mm 38mm Lock Shoulder Screw Bone Glenoid Baseplate - [id number] Implanted:Qty: 1 on 10/13/2019 by Giuseppe Mariano MD at [facility] Left: Shoulder [employer] 07/31/2022 [id number] 8 / / [id number] [employer] 509-00-436 Rsp 36mm Humeral +4mm Standard Insert Socket [employer] Plus Sterile - [id number] Implanted:Qty: 1 on 10/13/2019 by Giuseppe Mariano MD at [facility] Left: Shoulder [employer] 03/07/2022 509-00-43 6 / / [id number] [employer] 530-10-108 Altivate 108mm Shoulder 10 Standard Stem Humeral - [id number] Implanted:Qty: 1 on 10/13/2019 by Giuseppe Mariano MD at [facility] Left: Shoulder [employer] 02/14/2025 530-10-10 8 / / [id number] Explanted Type Area Deputy Building Guard Device Identifier Shelf Expiration Date Model / Serial / Lot [employer] [id number] [facility] 3/32in 9in 2 Trocar Pin Fixation Nonsterile - [id number] Implanted:Qty: 1 Explanted:Qty: 1 on 10/13/2019 by Giuseppe Mariano MD at [facility] [employer] [id number] / / Insurance MEDICARE [employer] [facility] MED[facility] Advance Directives For more information, please contact: [phone] * Full Code (Latest Code Status on File) Date Activated Date Inactivated Comments 10/13/2019 2:35 PM 10/14/2019 5:39 PM * Full Code Date Activated Date Inactivated Comments 08/25/2019 1:48 PM 08/25/2019 8:31 PM Care Teams Cloth Hand Relationship Specialty Start Date End Date Luciano Henson MD [address] [facility] [address] [place] [address] PCP - General Family Medicine 08/16/19
[2025-02-20 13:24] VITALS: BP 119/63; PULSE 79; RESP 16; TEMP 36.6; O2SAT 100; BMI 32.3
[2025-02-20] MEDS: LACTATED RINGERS 1,000 ML 150 ML IV CONT (13:36)
--- NOTE | 2025-02-20 14:03 | P.PNAN_ITS ---
Anes - Initial Pre Proc Eval Procedure: Operation Date: 02/20/25 14:30 Proposed Procedures p EGD & Diagnostic Colonoscopy - Carlos Eduardo Duong MD Date/Time: 02/20/25 14:03 Surgeon: Carlos Eduardo Duong MD Pre Op Diagnosis: Iron deficiency anemia, unspecified Patient Data Age: 74 Gender: M Height: 1.73 m Weight: 96.4 kg Last Vital Signs Temp 36.6 C 02/20/25 13:24 Pulse 79 02/20/25 13:24 Resp 16 02/20/25 13:24 BP 119/63 02/20/25 13:24 Pulse Ox 100 02/20/25 13:24 O2 Del Method Room Air 02/20/25 13:24 Allergies Allergy/AdvReac Type Severity Reaction Status Date / Time No Known Allergies Allergy Unknown Verified 02/20/25 13:19 Home Medications ?Medication ?Instructions ?Recorded ?Confirmed ?Type vitamin B complex (B 1 tablet PO DAILY 09/19/22 1 04/23/24 History Complex-Vitamin B12 tablet) ascorbic acid (vitamin C) 500 mg 1,000 mg PO DAILY 02/20/25 History tablet (Vitamin C) nebivolol 20 mg tablet (Bystolic) 20 mg PO DAILY #90 t abs 02/25/24 02/20/25 Rx blood-glucose sensor (FreeStyle #6 ea 03/31/24 5 Rx Theodora 3 Sensor device) blood-glucose,financial services intern,cont #1 ea 03/31/24 12/29/24 Rx (FreeStyle Theodora 3 [place]) ferrous sulfate 325 mg (65 mg See Rx Instructions .Rou te 05/09/24 02/20/25 Rx iron) tablet (FeroSul) .COMPLEX #180 tabs olmesartan 40 mg tablet 40 mg PO DAILY #90 tabs 0510/0701/31/25 Rx pantoprazole 40 mg tablet,delayed 40 mg PO QAM #90 tab s 07/25/24 02/20/25 Rx release glipizide 10 mg tablet 10 mg PO BID #180 tabs 08/0501/31/25 Rx amlodipine 5 mg tablet 5 mg PO DAILY #90 tabs 09/1202/20/25 Rx metformin 500 mg tablet,extended 2,000 mg (4 x 500 mg) PO DAILY 11/22/24 02/20/25 Rx release 24 hr #360 tabs albuterol sulfate 90 mcg/actuation 1 - 2 puff inhalati on Q4H PRN 12/07/24 01/31/25 Rx aerosol inhaler (ProAir HFA) shortness of breath or wh eezing #6.7 grams etodolac 400 mg tablet 400 mg PO BID PRN pain #180 tabs 12/16/24 01/31/25 Rx rosuvastatin 10 mg tablet 10 mg PO DAILY #90 tabs 12/1402/20/25 Rx dulaglutide 4.5 mg/0.5 mL 4.5 mg (0.5 mL) subcut WEEKL Y #2 mL 01/16/25 02/20/25 Rx subcutaneous pen injector fluoxetine 10 mg capsule 10 mg PO DAILY #14 caps 01/1402/20/25 Rx Laboratory Tests 02/20/25 13:31 POC Capillary Glucose 109 H mg/dl (65-105) Patient hx anesthesia problems: none Family hx anesthesia problems: none Results Review: All pre-operative results and documents have been reviewed as part of the pre- operative evaluation. [facility] Past Medical History Medical History AVM (arteriovenous malformation) of small bowel, acquired Rectal bleeding Hemorrhoid Obesity (BMI 30.0-34.9) Abnormal gastric folds Aftercare following left shoulder joint replacement surgery HLD (hyperlipidemia) Erectile dysfunction Status post fall Left shoulder pain Type 2 diabetes mellitus with hyperglycemia Diverticulosis Internal hemorrhoid LUQ abdominal pain Chronic GERD Essential hypertension YASMANY (obstructive sleep apnea) Pure hypercholesterolemia Type 2 diabetes mellitus without complication, without long-term current use of insulin Surgical History Surgical History H/O shoulder surgery this past week at [facility]. S/P bilateral inguinal herniorrhaphy History of appendectomy Family History Family History Mother Patient's mother is , Onset Age: 62 Family history of malignant neoplasm of ovary Hypertension Father Patient's father is in good health Social History Social History Social History: The patient tells me that he lives with his . And that she is a durable power divorce attorney for healthcare. The patient stated that he does continue to smoke but he plans on quitting today. The patient is a full code. Smoking packs per day: 1 Smoking cigarettes per day: 20.0 Years smoked: 50 Smoking pack-years: 50.00 Smoking status: Current every day smoker Tobacco type: cigarettes Second hand tobacco smoke exposure: Yes Alcohol intake: current Drinks per week: 3 Substance use: never Substance use type: does not use Lack of Transportation: No Lack of Food: Never True Current Housing: I Have Housing Concerned About Future Housing: No Difficulty Paying Gas/Electric Bills: No Difficulty Paying for Meds: No Currently Unemployed: YES Education: Don't Know Difficulty w/ Childcare or Family Care: No Living arrangements: other Additional living arrangements comments: With Occupation/Education: retired Gender identity (if verbalized by the patient): Male Sexual Orientation (if Verbalized by the Patient): Straight or Heterosexual Spiritual care concerns: No Anes - Eval Final PreProcedure Day of Procedure 02/20/25 14:03 Patient weight: obese Heart: regular rate and rhythm Lungs: clear to auscultation Airway: Mallampati scale class II Neurological: alert and oriented Last oral intake: >/= 8 hours ASA classification: III Emergent: no Anesthetic plan: proceed Anesthesia type and monitoring: general GIVS and standard monitoring Results Review: All pre-operative results and documents have been reviewed as part of the pre- operative evaluation. Informed Consent: The patient's anesthetic plan and its attendant risks and benefits were discussed with the patient/family/POA. Questions were solicited and answers provided to the satisfaction of the patient/family/POA.
--- NOTE | 2025-02-20 14:06 | PM.HPGS ---
History of Present Illness History of Present Illness Consent: Risks, benefits, and alternatives have been discussed and questions answered. Patient agrees to proceed with procedure. Chief complaint: Iron deficiency anemia, unspecified Narrative: Tolu Franklin is a 74 year old male with recurrent anemia seeing claim investigator, last colonoscopy 2022 no findings to explain anemia including TI (2019 had SBCE that showed small AVM in TI), he denies overt gib Review of Systems Review of Systems: All systems reviewed & are unremarkable except as noted in HPI and below PMFSH Past Medical History Medical History AVM (arteriovenous malformation) of small bowel, acquired Rectal bleeding Hemorrhoid Obesity (BMI 30.0-34.9) Abnormal gastric folds Aftercare following left shoulder joint replacement surgery HLD (hyperlipidemia) Erectile dysfunction Status post fall Left shoulder pain Type 2 diabetes mellitus with hyperglycemia Diverticulosis Internal hemorrhoid LUQ abdominal pain Chronic GERD Essential hypertension YASMANY (obstructive sleep apnea) Pure hypercholesterolemia Type 2 diabetes mellitus without complication, without long-term current use of insulin Surgical History Surgical History H/O shoulder surgery this past week at [facility]. S/P bilateral inguinal herniorrhaphy History of appendectomy Family History Family History Mother Patient's mother is , Onset Age: 62 Family history of malignant neoplasm of ovary Hypertension Father Patient's father is in good health Social History Social History Social History: The patient tells me that he lives with his . And that she is a durable power immigration attorney for healthcare. The patient stated that he does continue to smoke but he plans on quitting today. The patient is a full code. Smoking packs per day: 1 Smoking cigarettes per day: 20.0 Years smoked: 50 Smoking pack-years: 50.00 Smoking status: Current every day smoker Tobacco type: cigarettes Second hand tobacco smoke exposure: Yes Alcohol intake: current Drinks per week: 3 Substance use: never Substance use type: does not use Lack of Transportation: No Lack of Food: Never True Current Housing: I Have Housing Concerned About Future Housing: No Difficulty Paying Gas/Electric Bills: No Difficulty Paying for Meds: No Currently Unemployed: YES Education: Don't Know Difficulty w/ Childcare or Family Care: No Living arrangements: other Additional living arrangements comments: With Occupation/Education: retired Gender identity (if verbalized by the patient): Male Sexual Orientation (if Verbalized by the Patient): Straight or Heterosexual Spiritual care concerns: No Meds Home Medications and Allergies Home Medications ?Medication ?Instructions ?Recorded ?Confirmed ?Type vitamin B complex (B 1 tablet PO DAILY 09/19/22 02/20/25 History Complex-Vitamin B12 tablet) ascorbic acid (vitamin C) 500 mg 1,000 mg PO DAILY 07/10/23 02/20/25 History tablet (Vitamin C) nebivolol 20 mg tablet (Bystolic) 20 mg PO DAILY #90 tabs 02/25/24 02/20/25 Rx blood-glucose sensor (FreeStyle #6 ea 03/31/24 12/29/24 Rx Theodora 3 Sensor device) blood-glucose,color checker,cont #1 ea 03/31/24 12/29/24 Rx (FreeStyle Theodora 3 [place]) ferrous sulfate 325 mg (65 mg See Rx Instructions .Route 05/09/24 02/20/25 Rx iron) tablet (FeroSul) .COMPLEX #180 tabs olmesartan 40 mg tablet 40 mg PO DAILY #90 tabs 07/20/24 01/31/25 Rx pantoprazole 40 mg tablet,delayed 40 mg PO QAM #90 tabs 07/25/24 02/20/25 Rx release glipizide 10 mg tablet 10 mg PO BID #180 tabs 08/05/24 01/31/25 Rx amlodipine 5 mg tablet 5 mg PO DAILY #90 tabs 09/12/24 02/20/25 Rx metformin 500 mg tablet,extended 2,000 mg (4 x 500 mg) PO DAILY 11/22/24 02/20/25 Rx release 24 hr #360 tabs albuterol sulfate 90 mcg/actuation 1 - 2 puff inhalation Q4H PRN 12/07/24 01/31/25 Rx aerosol inhaler (ProAir HFA) shortness of breath or wheezing #6.7 grams etodolac 400 mg tablet 400 mg PO BID PRN pain #180 tabs 12/16/24 01/31/25 Rx rosuvastatin 10 mg tablet 10 mg PO DAILY #90 tabs 12/25/24 02/20/25 Rx dulaglutide 4.5 mg/0.5 mL 4.5 mg (0.5 mL) subcut WEEKLY #2 mL 01/16/25 02/20/25 Rx subcutaneous pen injector fluoxetine 10 mg capsule 10 mg PO DAILY #14 caps 01/27/25 02/20/25 Rx Allergies Allergy/AdvReac Type Severity Reaction Status Date / Time No Known Allergies Allergy Unknown Verified 02/20/25 13:19 Vital Signs Vital Signs - 24 hr 02/20/25 13:24 Temperature 97.8 F Pulse Rate 79 Respiratory Rate 16 Blood Pressure 119/63 Pulse Oximetry 100 Oxygen Delivery Room Air Exam Const: General: comfortable and no acute distress HENMT: Face/Nose/Sinus: Normal nares present Eyes: General: appearance normal, both eyes and all related structures Neck: Neck: no JVD Resp: Auscultation: clear to auscultation bilaterally Cardio: Rate: regular rate Rhythm: regular rhythm GI: Inspection: non-distended GI Palp: Yes Soft to palpation Skin: General skin exam: normal color Extrem: General: normal to inspection Psych: Mental Status: mental status grossly normal Assessment and Plan Assessment and plan (1) Iron deficiency anemia, unspecified: Code(s): D50.9 - Iron deficiency anemia, unspecified Status: Acute Assessment and Plan: egd and colonoscopy
--- NOTE | 2025-02-20 14:20 | SUR.OPER ---
EGD end 1415 COLONOSCOPY START 1420
--- NOTE | 2025-02-20 14:29 | S_PTH ---
PATIENT: Tolu Franklin LOC: [facility]#:[id number] AGE/SX: 74/M ROOM: RE02/20/[address]: Carlos Eduardo Duong MD : 1950 BED: DIS: 02/20/2025 SPEC #: [id number] RECD: 02/21/25 08:13 STATUS: JOAQUIN REQ #: [id number] PAWEL: 02/20/25 14:[address]: Carlos Eduardo Duong DEPT: [facility] [place] Surgical RECD BY: Kalina Rodriguez MLT, ([facility]) ENTERED: 02/21/25 08:15 SP TYPE: Surgical OTHR DR: Luciano Henson MD Tissues: A - Colon Polypectomy B - Colon Polypectomy Procedures: Hematoxylin and Eosin Stain Gross and Microscopic Level 4
[2025-02-20 14:31] VITALS: BP 113/57; PULSE 82; RESP 20; O2SAT 100
[2025-02-20 14:41] VITALS: BP 96/60; PULSE 78; RESP 18; O2SAT 98
[2025-02-20 14:51] VITALS: BP 123/68; PULSE 76; RESP 24; O2SAT 99
== END 2025-02-20 15:08 | disposition home or self-care (01) ==
PROVIDERS: PCP Family Medicine; Referring Provider Nurse Practitioner; Visit Provider Internal Medicine Gastroenterology
PROC: 0DJ08ZZ Inspection of Upper Intestinal Tract, Via Natural or Artificial Opening Endoscopic (ICD-10-PCS; CPT 45378; principal; 2025-02-20 14:30)
DX: D50.9 Iron deficiency anemia, unspecified (principal); D12.3 Benign neoplasm of transverse colon; D12.8 Benign neoplasm of rectum; K57.30 Diverticulosis of large intestine without perforation or abscess without bleeding; K64.8 Other hemorrhoids; Q27.33 Arteriovenous malformation of digestive system vessel; E11.9 Type 2 diabetes mellitus without complications; F17.210 Nicotine dependence, cigarettes, uncomplicated; E66.9 Obesity, unspecified; Z68.32 Body mass index [BMI] 32.0-32.9, adult
CPT/HCPCS: 45385; 43270; 82948; 88305; J2003; J2704; J7120